=== PATIENT | female | born 1990 | race Caucasian/White ===

== ENCOUNTER 2020-11-07 18:54 | Emergency (ER) | payer OTHER, SELFPAY ==
[2020-11-07] VITALS (17 sets, daily range): BP systolic 110–141; BP diastolic 84–107; PULSE 90–137; RESP 11–25; TEMP 37.6; O2SAT 95–100
--- NOTE | ~2020-11-07 | XR_ITS ---
EXAMINATION: XR chest 1V portable DATE: 11/07/2020 19:59 INDICATION: Fever, chills and body aches TECHNIQUE: frontal view of the chest was obtained. COMPARISON: None FINDINGS: The lungs are clear with no focal airspace opacities, pulmonary edema, pleural effusion or pneumothor ax. The cardiomediastinal silhouette is normal. Mild S-shaped curvature of the thoracic spine. IMPRESSION: 1. No acute cardiopulmonary disease. Reviewed, dictated and finalized at location A. 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
--- NOTE | 2020-11-07 19:16 | ED.FEVER ---
HPI - Fever General Chief Complaint: Fever Stated Complaint: fever Time Seen by Provider: 11/07/20 19:02 Source: patient Mode of arrival: ambulatory Limitations: no limitations History of Present Illness HPI Narrative: This is a 30 year old female that presents to the ER for fever. Associated with body aches, chills, congestion. Reports her temperature was 103 at home which prompted her to be seen. She did take Tylenol. Symptoms have been ongoing for 3 days. Reports her boyfriend has had similar symptoms. Denies chest pain, shortness of breath, abdominal pain, vomiting, or dysuria. Related Data Home Medications Medication Instructions Recorded Confirmed No Home Medications 11/07/20 11/07/20 Allergies Allergy/AdvReac Type Severity Reaction Status Date / Time clindamycin Allergy Rash Verified 11/07/20 19:03 Review of Systems Review of Systems: Narrative: CONSTITUTIONAL: Reports fever, chills ENT: Reports rhinorrhea, congestion CARDIOVASCULAR: Denies chest pain RESPIRATORY: Denies cough or dyspnea. GASTROINTESTINAL: Denies abdominal pain, nausea, vomiting GENITOURINARY: Denies dysuria All systems reviewed & are unremarkable except as noted in HPI and below PMFSH Past Medical History Medical History (Updated 11/07/20 @ 20:25 by Lorraine Palafox PA-C) No active medical problems Social History Social History (Updated 11/07/20 @ 19:24 by Lorraine Palafox PA-C) Substance use: never Gender identity (if verbalized by the patient): Female Exam Narrative: Exam Narrative: GENERAL: Well-appearing, well-nourished, and in no acute distress. HEAD: Normocephalic, atraumatic. EYES: EOMI. ENT: Nares clear, no rhinorrhea or epistaxis. Mucous membranes moist. Oropharynx without tonsillar hypertrophy exudate or other lesions. Bilateral TMs pearly gunn non-bulging NECK: Supple. No adenopathy or masses. CHEST: Clear to auscultation. No respiratory distress. No wheezes rales or rhonchi HEART: Regular rate and rhythm. No murmur heard. Normal peripheral pulses. EXTREMITIES: Normal range of motion. No edema. SKIN: Warm, dry, no rash. NEURO: No focal deficits. Alert and oriented x3. PSYCH: Normal mood and affect Course Vital Signs Vital signs: Vital Signs Temperature 99.6 F 11/07/20 19:01 Pulse Rate 130 H 11/07/20 19:01 Respiratory Rate 18 11/07/20 19:01 Blood Pressure 141/107 H 11/07/20 19:01 Pulse Oximetry 98 11/07/20 19:01 Temperature 99.6 F 11/07/20 19:01 Pulse Rate 111 H 11/07/20 19:16 Respiratory Rate 12 11/07/20 19:16 Blood Pressure 129/86 11/07/20 19:16 Pulse Oximetry 97 11/07/20 19:16 MDM - Fever MDM Narrative Medical decision making narrative: Patient presents the emergency department for cold symptoms x3 days. Tachycardic upon arrival, this improved with IV fluid administration. She is afebrile and nontoxic-appearing. Oxygen saturation is remained normal on room air. CBC with lymphocytopenia, likely due to viral infection. Metabolic panel with mild transaminitis, also likely due to viral infection. Lactic acid is normal. Influenza screen is negative. SARS-CoV-2 was sent. Chest x-ray is without acute findings. UA without evidence of infection. Patient was updated on case findings. Instructed on care of viral infection. She is to follow-up with primary care doctor. She was given warnings to return to the ER Lab Data Attestation: I reviewed the patient's lab results. Result diagrams: 11/07/20 19:22 11/07/20 19:22 Labs: Lab Results 11/07/20 11/07/20 11/07/20 Range/Units 19:22 19:22 19:22 WBC 2.9 L (4.5-10.0) K/mm3 RBC 5.19 (4.2-5.4) M/mm3 Hgb 15.0 (12.0-15.0) g/dL Hct 44.4 (37.0-47.0) % MCV 85.5 (80-100) fl MCH 28.9 (26-34) pg MCHC 33.8 (32-36) g/dl RDW 12.2 (11.5-14.5) % Plt Count 209 (150-375) k/mm3 MPV 9.0 (7.4-10.4) fl Immature Gran % (Auto) 0.3 (0-0.5) % Neut %
[2020-11-07 19:27] LABS: Basophils Percent Auto 0.3 % (0.2-1.2); Hematocrit 44.4 % (37.0-47.0); Immature Granulocyte Absolute 0.01 K/mm3 (0.00-0.031); Immature Granulocyte Percent A 0.3 % (0-0.5); Lymphocytes Absolute Auto 0.71 K/mm3 (0.9-3.2); Lymphocytes Percent Auto 24.1 % (18.3-44.2); Mean Corpuscular HGB Conc 33.8 g/dl (32-36); Mean Corpuscular Hemoglobin 28.9 pg (26-34); Mean Corpuscular Volume 85.5 fl (80-100); Monocytes Absolute Auto 0.3 K/mm3 (0.1-0.6); Monocytes Percent Auto 10.5 % (2.6-8.5); Neutrophils Absolute Auto 1.9 K/mm3 (1.3-6.7); Neutrophils Percent Auto 63.8 % (45.5-73.1); Platelet Count Result 209 k/mm3 (150-375); Red Blood Count 5.19 M/mm3 (4.2-5.4); Red Cell Distribution Width 12.2 % (11.5-14.5); White Blood Count 2.9 K/mm3 (4.5-10.0)
[2020-11-07] MEDS: SODIUM CHLORIDE 0.9% IV 1,000 ML 999 ML IV CONT (19:36)
[2020-11-07] MEDS: KETOROLAC 30 MG/ML VIAL (*BKC) (19:37)
[2020-11-07 19:39] LABS: Lactic Acid Reflex 1.2 mmol/L (0.7-2.1)
[2020-11-07 19:42] LABS: Alanine Aminotransferase 50 U/L (4-35); Albumin Level 3.9 g/dL (3.5-5.1); Alkaline Phosphatase 89 U/L (38-126); Anion Gap 4 mmol/L (8-16); Aspartate Amino Transferase 51 U/L (14-36); Bilirubin,Total 0.4 mg/dL (0.2-1.3); Blood Urea Nitrogen 4 mg/dL (7-17); CRP 5.9 mg/dL (<1.0); Calcium 8.9 mg/dL (8.4-10.2); Carbon Dioxide 27 mmol/L (22-30); Chloride 103 mmol/L (98-107); Estimated CRCL calculation 166 ml/min; Estimated Glomerular Filt Rate > 60; Glucose 126 mg/dL (65-105); Lactate Dehydrogenase 594 U/L (313-618); Potassium 3.9 mmol/L (3.4-5.0); Sodium 134 mmol/L (137-145)
[2020-11-07 20:44] LABS: Add Urine Microscopic? YES; Appearance Urine Clear (Clear); Bacteria Urine Trace /hpf; Bilirubin Urine Negative (Negative); Blood Urine 2+ (Negative); Color Urine Yellow (Yellow); Glucose Urine UA Negative (Negative); Ketones Urine Negative (Negative); Leukocyte Esterase Ur Negative LEU/UL (Negative); Mucus Urine Moderate /lpf; Nitrate Urine Negative (Negative); Protein Urine 1+ mg/dL (Negative); Specific Grav Ur 1.021 (1.001-1.035); Squamous Epithelial Cell Urine Few /hpf (Few); Urobilinogen Urine Negative mg/dL (<2.0); WBC Urine 0-3 /hpf
[2020-11-08 16:31] LABS: SARS-CoV-2 RNA PCR Negative
== END 2020-11-07 21:13 | disposition home or self-care (01) ==
PROVIDERS: Physician Assistant; Emergency Provider Emergency Medicine; PCP Obstetrics & Gynecology
DX: R50.9 Fever, unspecified (principal); Z20.822 Contact with and (suspected) exposure to COVID-19
CPT/HCPCS: 36415; 71045; 80053; 81001; 81025; 82728; 83605; 83615; 85025; 86140; 87804; 96361; 96374; 99284; C9803; J1885; J7030; U0003; U0005

== ENCOUNTER 2022-07-24 13:52 | Outpatient (CLI) | payer OTHER, SELFPAY ==
[2022-07-24 14:42] LABS: Beta HCG Quantitative < 2.39 mIU/ML
== END 2022-07-24 13:53 | disposition home or self-care (01) ==
LOC: ANHLAB 13:58
PROVIDERS: Visit Provider Obstetrics & Gynecology
DX: O20.0 Threatened abortion (principal); Z3A.00 Weeks of gestation of pregnancy not specified
CPT/HCPCS: 36415; 84702; 86850; 86900; 86901

== ENCOUNTER 2022-12-31 03:09 | Emergency (ER) | payer OTHER, SELFPAY ==
[2022-12-31] VITALS (18 sets, daily range): BP systolic 125–155; BP diastolic 84–94; PULSE 67–88; RESP 16–21; TEMP 36.6; O2SAT 95–100
--- NOTE | ~2022-12-31 | CT_ITS ---
EXAMINATION: CT abdomen pelvis wo con DATE: 12/31/2022 03:56 INDICATION: Nausea and right-sided flank pain TECHNIQUE: Computed tomography (CT) of the abdomen and pelvis was performed without intravenous contr ast. Automated exposure control and iterative reconstruction technique were employed. The dose-length product was 1713.99 mGy-cm. COMPARISON: None FINDINGS: Lung bases are clear. Heart size is normal. No pericardial or pleural effusion. Cholecystectomy clips the gallbladder fossa. Liver, spleen, pancreas and bilateral adrenal glands are normal. 4 mm stone a t the proximal right ureter with mild right hydronephrosis. There are a few additional smaller bilate ral renal stones with 3 in the right kidney and 4 in the left kidney. Small region of cortical scarri ng at the lower pole of the right kidney. Bowels are unremarkable with no wall thickening or obstruct ion. Decompressed bladder is normal. Anteverted uterus and bilateral adnexa are normal. No free intra peritoneal gas or fluid. No pathologically enlarged abdominal or pelvic lymphadenopathy. Bones are un remarkable. IMPRESSION: 1. Bilateral nephrolithiasis with at least partially obstructing 4 mm stone in the proximal right ure ter with mild right hydronephrosis. Reviewed, dictated and finalized at location A. IMPRESSION: 1. Bilateral nephrolithiasis with at least partially obstructing 4 mm stone in the proximal right ureter with mild right hydronephrosis.
[2022-12-31] MEDS: ONDANSETRON INJ 4 MG/2 ML VIAL IV PUSH (03:28)
[2022-12-31] MEDS: MORPHINE SULFATE (*CRX) 4 MG/ML INJ IV PUSH ×2 (03:28→07:23)
[2022-12-31] MEDS: SODIUM CHLORIDE 0.9% IV 1,000 ML 999 ML IV CONT (03:28)
[2022-12-31 03:30] LABS: Basophils Absolute Auto 0.1 K/mm3 (0.0-0.1); Basophils Percent Auto 0.7 % (0.2-1.2); Eosinophils Absolute Auto 0.6 K/mm3 (0-0.3); Eosinophils Percent Auto 6.7 % (0-4.4); Hematocrit 42.8 % (37.0-47.0); Hemoglobin 14.7 g/dL (12.0-15.0); Immature Granulocyte Absolute 0.01 K/mm3 (0.00-0.031); Immature Granulocyte Percent A 0.1 % (0-0.5); Lymphocytes Percent Auto 36.6 % (18.3-44.2); Mean Corpuscular HGB Conc 34.3 g/dl (32-36); Mean Corpuscular Volume 87.3 fl (80-100); Mean Platelet Volume 9.1 fl (7.4-10.4); Monocytes Absolute Auto 0.8 K/mm3 (0.1-0.6); Monocytes Percent Auto 9.1 % (2.6-8.5); Neutrophils Percent Auto 46.8 % (45.5-73.1); Platelet Count Result 301 k/mm3 (150-375); Red Cell Distribution Width 12.6 % (11.5-14.5); White Blood Count 8.5 K/mm3 (4.5-10.0)
--- NOTE | 2022-12-31 03:39 | ED.GENADULT ---
HPI - General Adult General Chief complaint: Back Pain/Injury <Fer Augustine MD - Last Filed: 12/31/22 06:28> Stated complaint: Flank pain <Fer Augustine MD - Last Filed: 12/31/22 06:28> Time Seen by Provider: 12/31/22 03:16 <Fer Augustine MD - Last Filed: 12/31/22 06:28> History of Present Illness HPI narrative: Patient 32-year-old female who presents the emergency department with chief complaint of right flank pain. Patient reports that she started having pain this evening in the right flank area got nauseated reports the pain is sharp radiates from the right flank to the right groin. Patient reports that she feels she had a similar episode in the past where she passed a kidney stone. Patient states this episode has been pretty severe and is not improved by anything. <Fer Augustine MD - Last Filed: 12/31/22 06:28> Related Data Allergies/adverse reactions: Allergies Allergy/AdvReac Type Severity Reaction Status Date / Time clindamycin Allergy Rash Verified 12/31/22 07:11 <Fer Augustine MD - Last Filed: 12/31/22 06:28> Review of Systems Review of Systems: A 10 system review of systems was completed on the patient and is negative except for what is stated in the HPI. Nursing and ancillary documentation was reviewed. <Fer Augustine MD - Last Filed: 12/31/22 06:28> PMFSH Past Medical History Medical History: Medical History No active medical problems <Fer Augustine MD - Last Filed: 12/31/22 06:28> Social History Social History: Social History Substance use: never Gender identity (if verbalized by the patient): Female <Fer Augustine MD - Last Filed: 12/31/22 06:28> Exam Narrative: GENERAL: Well-appearing, well-nourished, and in moderate pain distress. HEAD: Normocephalic, atraumatic. EYES: PERRLA and EOMI. ENT: Nares clear, no rhinorrhea or epistaxis. Mucous membranes moist. NECK: Supple. CHEST: Clear to auscultation. No respiratory distress. HEART: Regular rate and rhythm. No murmur heard. Normal peripheral pulses. ABDOMEN: Soft, nontender, nondistended, normal active bowel sounds. EXTREMITIES: Normal range of motion. No edema. SKIN: Warm, dry, no rash. NEURO: No focal deficits. Alert and oriented x3. PSYCH: Normal mood and affect. <Fer Augustine MD - Last Filed: 12/31/22 06:28> Course Reevaluation(s) Reevaluation #1: Patient care was signed out to me by Dr. Augustine with CT pending. Patient is a 32-year-old female presenting to the ED after developing right flank pain approximate 1 hour prior to arrival. Patient does have a remote history of a kidney stone that she was able to pass on her own. CT was ordered to rule out kidney stone. Patient was afebrile with no leukocytosis. Patient's CMP including her creatinine was similar to her baseline. Patient did have hematuria with a few white blood cells. No significant evidence of urinary infection. CT scan showed bilateral nephrolithiasis with at least partial obstructing 4 mm stone in the proximal right ureter with mild right hydronephrosis. On reevaluation patient states that she does feel that her pain is controlled. Patient was updated on the results of her work-up including CT scan. Patient was educated on the treatment plan for home including pain and nausea medications. Patient was also instructed to strain her urine. Patient will be provided follow-up with urology. Patient was also educated on reasons to return to the emergency room. All questions concerns were addressed and patient was comfortable with the plan for discharge and close follow-up. <Campos Somers MD - Last Filed: 12/31/22 11:26> Vital Signs Vital signs: Vital Signs Temperature 98 F 12/31/22 03:
[2022-12-31 03:41] LABS: Alanine Aminotransferase 33 U/L (6-35); Albumin Level 4.4 g/dL (3.5-5.1); Alkaline Phosphatase 93 U/L (38-126); Anion Gap 7 mmol/L (8-16); Aspartate Amino Transferase 29 U/L (14-36); Bilirubin,Total 0.5 mg/dL (0.2-1.3); Blood Urea Nitrogen 12 mg/dL (7-17); Calcium 9.8 mg/dL (8.4-10.2); Carbon Dioxide 25 mmol/L (22-30); Chloride 103 mmol/L (98-107); Estimated CRCL calculation 144 ml/min; Estimated Glomerular Filt Rate > 60; Glucose 112 mg/dL (65-110); Lipase 180 U/L (23-300); Potassium 3.8 mmol/L (3.4-5.0); Sodium 135 mmol/L (137-145)
[2022-12-31 05:00] LABS: Appearance Urine Clear (Clear); Bacteria Urine None Seen /hpf; Bilirubin Urine Negative (Negative); Blood Urine 3+ (Negative); Color Urine Yellow (Yellow); Glucose Urine UA Negative (Negative); Ketones Urine Negative (Negative); Leukocyte Esterase Ur Trace LEU/UL (Negative); Nitrate Urine Negative (Negative); Protein Urine Trace mg/dL (Negative); RBC Urine >100 /hpf (0-2); Specific Grav Ur 1.018 (1.001-1.035); Squamous Epithelial Cell Urine Occasional /hpf (Few); Urobilinogen Urine 0.2 mg/dL (<2.0); pH Urine 5.5 (5.0-9.0)
[2022-12-31 05:11] LABS: Add Urine Microscopic? YES
[2022-12-31] MEDS: TAMSULOSIN HCL 0.4 MG CAPSULE PO (09:03)
== END 2022-12-31 09:15 | disposition home or self-care (01) ==
PROVIDERS: Emergency Provider Emergency Medicine
DX: N20.1 Calculus of ureter (principal)
CPT/HCPCS: 36415; 74176; 80053; 81001; 81025; 83690; 85025; 87086; 87088; 96361; 96374; 96375; 96376; 99284; A9270; J2270; J2405; J7030

== ENCOUNTER 2024-03-12 01:28 | Day surgery (SDC) | payer OTHER, SELFPAY ==
--- NOTE | 2024-03-03 13:57 | PC.NURSE ---
Report to the Outpatient Waiting Room, entrance under the green pavilion located off [facility], at time 0830 on date 03/12/24. Planned Procedure Time: 1030. Time changes happen often and if your time is changed the preop area will call you the afternoon before. - You and your visitor will be asked to self-screen and do not enter if you have any COVID symptoms. - A mask is optional within the hospital at this time. Patients may have clear liquids (water, carbonated beverages, clear teas, apple juice) until 3 hours prior to surgery with a maximum of 20 ounces. 0730 - No food from midnight until time of surgery - Infants may have breast milk until 4 hours before surgery, formula 6 hours prior to surgery. - Children will be allowed to drink immediately following surgery. If applicable, please bring a bottle or sippy cup to assist with drinking. Juice, water, soda, and popsicles are readily available. For infants on formula, please bring formula the day of surgery. Pacifiers are allowed. Take the following medications with a SIP of water the morning of surgery: n/a DO NOT STOP ANY OF YOUR OTHER PRESCRIPTION MEDICATIONS PRIOR TO SURGERY ?EXCEPT THE FOLLOWING Medications to discontinue per physician n/a Date to take last dose Please no make-up, nail nauruan, hairspray, perfume, deodorant, or body powder the day of surgery. No jewelry (including any body piercings) or valuables the day of surgery, leave them at home. Please take a shower or bath the night before, or the morning of, surgery with an antibacterial soap. Wear comfortable, loose fitting clothing. Children are encouraged to wear pajamas. - Jewelry must be removed prior to entering the operating room. Rings and piercings that are not removed may be cut off. - The hospital will not accept responsibility for valuables. - Please leave all valuables, including medications, at home the day of surgery. If you are going home after surgery, a licensed hook up driver must drive you home. - NO public transportation without another adult if you receive anesthesia. - We recommend that an adult stay with you for 24 hours following discharge. - We also recommend that you do not drive, make important decision, drink alcoholic beverages, or take any drugs that were not prescribed by your health care provider for at least 24 hours after your discharge time. For Pediatric surgeries, we recommend two adults accompany the child home. Follow any additional instructions given to you from your surgeon. If you or anyone in your household have experienced Covid symptoms in the past week, please notify your surgeon or the nurse liaison at the phone number below for possible testing. Telephone instructions given to Patient- Thalia Cassidy and asked if any additional questions and then verbalized understanding. Patient advised to call surgeon office or pre surgery nurse liaison [phone] if any additional questions.
[2024-03-03 14:02] VITALS: BMI 33.3
[2024-03-12] VITALS (7 sets, daily range): BP systolic 104–126; BP diastolic 61–86; PULSE 57–88; RESP 14–20; TEMP 36.9; O2SAT 97–100
[2024-03-12] MEDS: KETOROLAC 15 MG/ML VIAL (*BKC) IV PUSH (10:04)
[2024-03-12] MEDS: ACETAMINOPHEN 500 MG TABLET 1000 MG PO (10:05)
[2024-03-12] MEDS: LACTATED RINGERS 1,000 ML 30 ML IV CONT ×2 (10:05→13:33)
--- NOTE | 2024-03-12 10:38 | P.PNAN_ITS ---
Anes - Initial Pre Proc Eval Procedure: Operation Date: 03/12/24 11:15 Proposed Procedures p Hysteroscopy With Eli Endometrial Ablation, Laparoscopic Bilateral Salpingectomy - Porter Leiva MD Date/Time: 03/12/24 10:38 Surgeon: Porter Leiva MD Pre Op Diagnosis: Menorrhagia Patient Data Age: 34 Gender: F Height: 1.83 m Weight: 111.3 kg Last Vital Signs Temp 98.4 F 03/12/24 10:10 Pulse 77 03/12/24 10:10 BP 116/72 03/12/24 10:10 Pulse Ox 99 03/12/24 10:10 O2 Del Method Room Air 03/12/24 10:10 Allergies Allergy/AdvReac Type Severity Reaction Status Date / Time clindamycin Allergy Rash Verified 12/31/22 07:11 Home Medications Medication Instructions Recorded Confirmed Type No Home Medications 03/04/24 03/04/24 History Patient hx anesthesia problems: post op nausea/vomiting Family hx anesthesia problems: none Results Review: All pre-operative results and documents have been reviewed as part of the pre- operative evaluation. [facility] Past Medical History Medical History No active medical problems Social History Social History Years smoked: 2 Smoking status: Former smoker Tobacco type: cigarettes and e-cigarettes/vaping Alcohol use details: Socially Substance use: never Substance use type: marijuana Other substance usage details: nightly for sleep Gender identity (if verbalized by the patient): Female Spiritual care concerns: No Anes - Eval Final PreProcedure Day of Procedure 03/12/24 10:38 Patient weight: obese Heart: regular rate and rhythm Lungs: clear to auscultation Airway: Mallampati scale class 1 Neurological: alert and oriented Last oral intake: >/= 8 hours ASA classification: II Emergent: no Anesthetic plan: proceed Anesthesia type and monitoring: general ETT and standard monitoring Results Review: All pre-operative results and documents have been reviewed as part of the pre- operative evaluation. Hx of exercise induced asthma, stable for years. Pt vapes most days. Informed Consent: The patient's anesthetic plan and its attendant risks and benefits were discussed with the patient/family/POA. Questions were solicited and answers provided to the satisfaction of the patient/family/POA.
[2024-03-12] MEDS: SCOPOLAMINE 1 MG PATCH 1 PATCH TRANSDERM (10:50)
--- NOTE | 2024-03-12 11:57 | WPDHPUPDATE1 ---
History and Physical Update Update Date/Time: 03/12/24 11:57 History and Physical has been reviewed, including an updated exam of the patient. There are NO changes in the patient's condition. Risks, benefits, and alternatives have been discussed and questions answered. Patient agrees to proceed with procedure.
[2024-03-12] MEDS: fentaNYL CITRATE INJ (*CRX) 100 MCG/2 ML VIAL 25 MCG IV PUSH ×4 (13:50→14:09)
--- NOTE | 2024-03-12 14:52 | P.OP_ITS ---
Procedure Note - Detailed Date of Procedure 03/12/24 Pre-op Diagnosis Menorrhagia Post-op Diagnosis Same Procedure Performed Laparoscopic bilateral salpingectomy with endometrial ablation and hysteroscopy. Surgeon Porter Leiva MD Anesthesia General Indications Menorrhagia, female sterilization Findings Normal vulva, vagina, cervix and endometrium. Normal uterus, tubes, ovaries Description of Procedure Patient was taken the operating room. She has prepped draped in the dorsal lithotomy position after induction of general anesthesia. A 5 mm abdominal incision was made in left upper quadrant of the abdomen with scalpel. A 5 mm trocars inserted the intra-abdominal cavity under direct visualization of the scope. Pneumoperitoneum was achieved. A 5 mm periumbilical incision was made using a scalpel on the abdominal scan. A 5 mm trocar was inserted the intra- abdominal cavity under visualization of the scope. A 5 mm incision made left lower quadrant of the abdomen. A 5 mm trocar was inserted the intra-abdominal cavity and direct visualization of the scope. The bilateral fallopian tubes were removed. The paratubal tissue in the area of the uterus was grasped with the LigaSure cautery and transected after being cauterized. The paratubal tissue from the ovary to the uterine cornu was cauterized and transected with LigaSure cautery. This was all done in a bilateral fashion. The tube was transected at the area of the uterine cornua and the tubes was removed through the 5 mm trocar site. The pneumoperitoneum was reduced. The trocars were removed. The skin was closed with subcuticular 4 Monocryl and covered with Dermabond. Our attention was then turned to the endometrial ablation portion of the procedure. A speculum was placed in the vagina. The cervix was grasped with a tenaculum. The cervix was dilated to approximately 8 mm with Maza dilators. The hysteroscope was inserted. And the below findings were noted. All of the intrauterine surfaces were curettaged with a medium-size curette and the specimens were collected. Measurements of the cervix were taken using the uterine sound and the hysteroscope. The intrauterine cavity measurements were entered into the handpiece. The device was inserted into the intrauterine cavity and the array was expanded. The balloon cuff was inflated. When an adequate seal was formed the safety and energy cycles were initiated and completed. The array was collapsed, the balloon was deflated. The insert was withdrawn. The hysteroscope was reinserted and a well desiccated intrauterine cavity was observed. The patient was taken recovery room stable condition. Sponge lap and needle counts were correct x2. She tolerated the procedure well. Pathology Yes Complications No immediate complications Condition Stable Disposition PACU
== END 2024-03-12 15:09 | disposition home or self-care (01) ==
PROVIDERS: Visit Provider Obstetrics & Gynecology
PROC: 0UDB8ZZ Extraction of Endometrium, Via Natural or Artificial Opening Endoscopic (ICD-10-PCS; CPT 58558; principal; 2024-03-12 11:15)
DX: N92.0 Excessive and frequent menstruation with regular cycle (principal); Z30.2 Encounter for sterilization; Z87.891 Personal history of nicotine dependence; F12.90 Cannabis use, unspecified, uncomplicated; E66.9 Obesity, unspecified; Z68.33 Body mass index [BMI] 33.0-33.9, adult
CPT/HCPCS: 58661; 58563; 88302; 88305; A9270; J1100; J1170; J1200; J1885; J2250; J2405; J2704; J3010; J7030; J7120

== ENCOUNTER 2024-08-09 09:43 | Emergency (ER) | payer OTHER, SELFPAY ==
--- NOTE | ~2024-08-09 | CT_ITS ---
EXAMINATION: CT BRAIN W/O DATE: 08/09/2024 12:20 INDICATION: Vertigo. Intermittent left eye vision loss. TECHNIQUE: Computed tomography (CT) of the head was performed without intravenous contrast. The dose- length product was 529.67 mGy-cm. Automated exposure control and iterative reconstruction technique w ere employed. COMPARISON: No prior studies for comparison. FINDINGS: Normal brain parenchymal volume for age. Normal gunn-white differentiation. No acute intrac ranial hemorrhage, infarction, mass or mass effect. No ventriculomegaly or midline shift. Midline sagittal images demonstrate a normal corpus callosum, c raniovertebral junction and sella turcica. Basilar cisterns are patent. Paranasal sinuses and mastoids are pneumatized. No depressed skull fractures. IMPRESSION: 1. No acute intracranial abnormality. Reviewed, dictated and finalized at location B.
--- NOTE | ~2024-08-09 | XR_ITS ---
EXAMINATION: XR chest 2V 08/09/2024 12:25 INDICATION: Vertigo. Left-sided vision changes. PROCEDURE: 2 view chest COMPARISON: 11/07/2020 FINDINGS: The lungs are clear. The cardiomediastinal silhouette is within normal limits. There are no pleural effusions. There is no pneumothorax suspected. There are cholecystectomy clips. IMPRESSION: 1: NO ACUTE CARDIOPULMONARY DISEASE. Reviewed, dictated and finalized at location B.
[2024-08-09 09:43] VITALS: BP 127/86; PULSE 76; RESP 15; TEMP 36.7; O2SAT 100
--- NOTE | 2024-08-09 09:57 | ECG_ITS ---
Test Date: 2024-08-09 10:01:41 Measurements Intervals [place] Rate: 72 P: 31 MI: 148 QRS: -9 QRSD: 92 T: 17 QT: 370 QTc: 405 Interpretive Statements SINUS RHYTHM LOW-VOLTAGE QRS BORDERLINE ECG No previous ECG available for comparison Electronically Signed On 08-10-2024 08:47:39 CDT by Brian Humphrey M.D.
--- NOTE | 2024-08-09 11:52 | ED.DIZZY ---
HPI - Dizziness General Chief Complaint: Dizziness Stated Complaint: dizziness Time Seen by Provider: 08/09/24 10:02 History of Present Illness HPI Narrative: 34-year-old female presenting with vertigo. States that for the last couple of days she has had intermittent episodes of vertigo. States that they seem random but they are worsened with positional changes and bending over and standing up. She has also had several episodes where her vision in her left eye went black and then slowly returns. States that she has an appointment with her PCP for this. States that she has been under lot of stress they are currently adopting a child so she has been attributing her symptoms to stress. Denies headaches, numbness or weakness, speech changes, infectious symptoms. No further complaints. Related Data Allergies Allergy/AdvReac Type Severity Reaction Status Date / Time clindamycin Allergy Rash Verified 08/09/24 09:56 Review of Systems Review of Systems: All systems reviewed & are unremarkable except as noted in HPI and below PMFSH Past Medical History Medical History No active medical problems Social History Social History Years smoked: 2 Smoking status: Former smoker Tobacco type: cigarettes and e-cigarettes/vaping Alcohol use details: Socially Substance use: never Substance use type: marijuana Other substance usage details: nightly for sleep Gender identity (if verbalized by the patient): Female Spiritual care concerns: No Exam Narrative: GENERAL: Well-appearing, In no acute distress, pleasant cooperative HEAD: Normocephalic, atraumatic. EYES: PERRLA and EOMI. several beats of horizontal nystagmus ENT: Mucous membranes moist. NECK: Supple. CHEST: Clear to auscultation. No respiratory distress. HEART: Regular rate and rhythm ABDOMEN: Soft, nontender, nondistended EXTREMITIES: Normal range of motion. No edema. SKIN: Warm, dry, no rash. NEURO: No focal deficits. Alert and oriented x3. no pronator drift, finger to nose intact PSYCH: Normal mood and affect. Course Vital Signs Vital signs: Vital Signs Temperature 98.1 F 08/09/24 09:43 Pulse Rate 76 08/09/24 09:43 Respiratory Rate 15 08/09/24 09:43 Blood Pressure 127/86 08/09/24 09:43 Pulse Oximetry 100 08/09/24 09:43 Oxygen Delivery Room Air 08/09/24 09:43 Temperature 98.1 F 08/09/24 09:43 Pulse Rate 64 08/09/24 14:25 Respiratory Rate 18 08/09/24 14:25 Blood Pressure 108/80 08/09/24 14:25 Pulse Oximetry 99 08/09/24 14:25 Oxygen Delivery Room Air 08/09/24 09:43 MDM - Dizziness MDM Narrative Medical decision making narrative: 34-year-old female presenting with vertigo. Vitals within normal limits. Exam remarkable for the above. EKG per my interpretation shows normal sinus rhythm, no ST elevations or depressions. Blood work is unremarkable. UA is contaminated, not concerning for infection. CT brain without acute abnormalities. Chest x-ray without acute abnormalities. Patient reports improvement in her symptoms following fluids and meclizine. States that she had a mild episode of some vertigo when she got up to use the restroom but it was mild and quickly resolved. Feel she is safe for outpatient management. Will send in for p.r.n. meclizine. Recommend close PCP follow-up. Strict return precautions given. She is agreeable this plan. Discharged in stable condition. Differential Diagnosis Differential diagnosis: Likely other ( Vertigo, lightheadedness, generalized weakness) Medical Records Attestation: I reviewed the patient's medical records. Lab Data Attestation: I reviewed the patient's lab results. 08/09/24 12:33 08/09/24 12:33 Labs: Lab Results 08/09/24 Range/Units 12:33 WBC 8.0 (4.5-10.0) K/mm3 RBC 4.89 (4.2-5.4)
[2024-08-09] MEDS: MECLIZINE HCL 25 MG TABLET PO (12:31)
[2024-08-09] MEDS: SODIUM CHLORIDE 0.9% IV 1,000 ML 999 ML IV CONT (12:31)
[2024-08-09 12:35] VITALS: BP 109/77; PULSE 69; RESP 17; O2SAT 100
[2024-08-09 12:43] LABS: Basophils Absolute Auto 0.1 K/mm3 (0.0-0.1); Basophils Percent Auto 0.6 % (0.2-1.2); Eosinophils Absolute Auto 0.3 K/mm3 (0-0.3); Eosinophils Percent Auto 3.9 % (0-4.4); Hematocrit 43.5 % (37.0-47.0); Hemoglobin 14.1 g/dL (12.0-15.0); Immature Granulocyte Absolute 0.02 K/mm3 (0.00-0.031); Immature Granulocyte Percent A 0.3 % (0-0.5); Lymphocytes Absolute Auto 2.33 K/mm3 (0.9-3.2); Lymphocytes Percent Auto 29.2 % (18.3-44.2); Mean Corpuscular HGB Conc 32.4 g/dl (32-36); Mean Corpuscular Hemoglobin 28.8 pg (26-34); Mean Platelet Volume 9.2 fl (7.4-10.4); Monocytes Absolute Auto 0.8 K/mm3 (0.1-0.6); Monocytes Percent Auto 9.5 % (2.6-8.5); Neutrophils Absolute Auto 4.5 K/mm3 (1.3-6.7); Neutrophils Percent Auto 56.5 % (45.5-73.1); Platelet Count Result 251 k/mm3 (150-375); Red Blood Count 4.89 M/mm3 (4.2-5.4)
[2024-08-09 12:56] LABS: Alanine Aminotransferase 21 U/L (6-35); Alkaline Phosphatase 68 U/L (38-126); Anion Gap 4 mmol/L (4-12); Aspartate Amino Transferase 23 U/L (14-36); Bilirubin,Total 0.7 mg/dL (0.2-1.3); Blood Urea Nitrogen 9 mg/dL (7-17); Calcium 8.8 mg/dL (8.4-10.2); Carbon Dioxide 30 mmol/L (22-30); Chloride 103 mmol/L (98-107); Estimated CRCL calculation 152 ml/min; Estimated Glomerular Filt Rate > 60; Glucose 75 mg/dL (65-110); Potassium 4.1 mmol/L (3.4-5.0); Sodium 137 mmol/L (137-145)
[2024-08-09 12:58] LABS: Add Urine Microscopic? YES; Appearance Urine Cloudy (Clear); Bacteria Urine 1+ /hpf; Bilirubin Urine Negative (Negative); Blood Urine Negative (Negative); Color Urine Yellow (Yellow); Glucose Urine UA Negative (Negative); Ketones Urine Negative (Negative); Leukocyte Esterase Ur Negative LEU/UL (Negative); Need Manual Microscopic Reviewed; Nitrate Urine Negative (Negative); Non Pathogenic Casts 0-2; Protein Urine Negative (Negative); RBC Urine 0-2 /hpf (0-2); Specific Grav Ur 1.017 (1.001-1.035); Squamous Epithelial Cell Urine Few /hpf (Few); Urobilinogen Urine 0.2 mg/dL (<2.0); WBC Urine 0-5 /hpf (0-3); pH Urine 6.5 (5.0-9.0)
[2024-08-09 14:25] VITALS: BP 108/80; PULSE 64; RESP 18; O2SAT 99
[2024-08-09 15:26] VITALS: BP 109/69; PULSE 77; RESP 18; O2SAT 100
== END 2024-08-09 15:29 | disposition home or self-care (01) ==
PROVIDERS: Emergency Provider Emergency Medicine
DX: R42 Dizziness and giddiness (principal); H53.8 Other visual disturbances; Z87.891 Personal history of nicotine dependence; R94.31 Abnormal electrocardiogram [ECG] [EKG]
CPT/HCPCS: 36415; 70450; 71046; 80053; 81001; 85025; 93005; 96360; 99284; A9270; J7030

== ENCOUNTER 2024-12-15 05:26 | Emergency (ER) | payer OTHER, SELFPAY ==
--- NOTE | ~2024-12-15 | CT_ITS ---
Non-contrast CT scan of the Abdomen and Pelvis Clinical indication: Kidney stone Technique: 2.5 mm axial scans were obtained through the abdomen and pelvis without intravenous or or al contrast. Dose reduction technique was used on this scan by utilizing automated exposure control a nd iterative reconstruction technique. The dose-length product (DLP) was 656.51 mGy-cm. COMPARISON: 12/31/2022 Findings: Images through the lung bases reveal no abnormalities. 2 mm nonobstructing right renal stone present. 3 mm nonobstructing left renal stone present. No urete ral stone or hydronephrosis on either side. The liver, spleen, pancreas, and adrenals appear normal. Cholecystectomy clips are present. There is no aortic aneurysm. There is no evidence of bowel obstruction. Images through the pelvis were performed. There is no evidence of ascites or lymphadenopathy. Urinary bladder unremarkable. No pelvic mass seen. Impression: Small bilateral nonobstructing stones, as above. No ureteral stone or hydronephrosis on either side. Reviewed, dictated and finalized at [facility]. R CLERK Impression: Small bilateral nonobstructing stones, as above. No ureteral stone or hydronephrosis on either side.
[2024-12-15 05:27] VITALS: BP 111/74; PULSE 72; RESP 22; O2SAT 100
--- OUTSIDE RECORDS SUMMARY | 2024-12-15 05:28 | XMS_ITS | Patient Health Summary ---
Author Organization [facility] Address [address] [place] [address] Care Team Providers Care Carcass Washer Name Role Phone Unavailable Primary Care Provider Unavailabl e Note from [facility],non-owned Affiliates and Associated Physician Practices is amultiple site organization consisting of ambulatory clinics and hospital sitesin [place], [place], [place] and [place]. This disclosure is being madepursuant to the Care Everywhere program and may not contain all information available regarding this patient. Last updated 18.[facility] Allergies * Clindamycin(Itching) Medications * Be aware that medications may not be up to date on this document. Alwaysverify current medications with the patient. * oxyCODONE-acetaminophen (Percocet) 5-325 MG tablet(Started 02/05/2023) Take 1 (one) tablet by mouth every 6 hours as needed for Pain * tamsulosin (Flomax) 0.4 MG capsule(Started 02/05/2023) Take 1 (one) capsule by mouth once daily after breakfast At the same time every day after a meal. * ondansetron (Zofran) 4 MG tablet(Started 02/05/2023) Take 1 (one) tablet by mouth every 6 hours as needed for Nausea/Vomiting Social History Tobacco Use Types Packs/Day Years Used Date Smoking Tobacco: Never Assessed Sex and Gender Information Value Date Recorded Sex Assigned at Not on file Gender Identity Not on file Sexual Orientation Not on file Last Filed Vital Signs Vital Sign Reading Time Taken Comments Blood Pressure 115/71 02/05/2023 11:46 AM CDT Pulse 68 02/05/2023 11:46 AM CDT Temperature 36.4 C (97.6 F) 02/05/2023 11:46 AM CDT Respiratory Rate 18 02/05/2023 11:46 AM CDT Oxygen Saturation 97% 02/05/2023 11:46 AM CDT Inhaled Oxygen Concentration - - Weight 122.5 kg (270 lb) 02/05/2023 8:31 AM CDT Height 182.9 cm (6') 02/05/2023 8:31 AM CDT Body Mass Index 36.62 02/05/2023 8:31 AM CDT Procedures * URINE MICROSCOPIC ONLY REFLEX TO CULTURE(Performed 02/05/2023) * URINALYSIS REFLEX MICROSCOPIC REFLEX CULTURE(Performed 02/05/2023) * HCG URINE QUALITATIVE(Performed 02/05/2023) * COMPREHENSIVE METABOLIC PANEL(Performed 02/05/2023) * CBC W AUTO DIFFERENTIAL(Performed 02/05/2023) * CT RENAL STONE(Performed 02/05/2023) Performed for Flank pain Results * (ABNORMAL) URINE MICROSCOPIC ONLY REFLEX TO CULTURE (02/05/2023 9:56 AM CDT) Reflex Status Culture not indicated 02/05/2023 10:50 AM CDT [facility] RBC UA 3-5 0 - 5 # /hpf 02/05/2023 10:50 AM CDT [facility] WBC UA 0-5 0 - 5 # /hpf 02/05/2023 10:50 AM CDT [facility] Bacteria UA Trace(A) None Seen 02/05/2023 10:50 AM CDT [facility] Squamous Epithelial Cells 0-2 0 - 5 /hpf 02/05/2023 10:50 AM CDT [facility] Mucus UA 1+ /LPF 02/05/2023 10:50 AM CDT [facility] Urine URINE SPECIMEN OBTAINED BY CLEAN CATCH PROCEDURE / Unknown Collection / Unknown 02/05/2023 9:56 AM CDT 02/05/2023 10:30 AM CDT Narrative [facility] - 02/05/2023 10:50 AM CDT Natalya Godfrey DO LAB - URINALYSIS ORDERABLES [facility] [address] [place] [address] * (ABNORMAL) URINALYSIS REFLEX MICROSCOPIC REFLEX CULTURE (02/05/2023 9:56 AM CDT) Color UA Yellow Straw, Yellow 02/05/2023 10:46 AM CDT [facility] Clarity UA Clear Clear 02/05/2023 10:46 AM CDT [facility] Glucose UA Negative Negative 02/05/2023 10:46 AM CDT [facility] Bilirubin UA Negative Negative 02/05/2023 10:46 AM CDT [facility] Ketone UA Negative Negative 02/05/2023 10:46 AM CDT [facility] Specific [place] UA 1.013 1.005 - 1.030 02/05/2023 10:46 AM CDT [facility] Blood UA 2+(A) Negative 02/05/2023 10:46 AM CDT [facility] pH UA 5.0 5.0 - 8.0 pH 02/05/2023 10:46 AM CDT [facility] Protein UA Negative Negative 02/05/2023 10:46 AM CDT [facility] Urobilinogen UA Negative Negative mg/dL 02/05/2023 10:46 AM CDT [facility] Nitrite UA Negative Negative 02/05/2023 10:46 AM CDT [facility] Leukocyte UA Negative Negative 02/05/2023 10:46 AM CDT [facility] Urine Microscopy Urine microscopy to follow 02/05/2023 10:46 AM CDT [facility] Reflex Status Culture not indicated 02/05/2023 10:46 AM CDT [facility] Urine URINE SPECIMEN OBTAINED BY CLEAN CATCH PROCEDURE / Unknown Collection / Unknown 02/05/2023 9:56 AM CDT 02/05/2023 10:30 AM CDT Narrative [facility] - 02/05/2023 10:46 AM CDT Natalya Godfrey DO LAB - URINALYSIS ORDERABLES [facility] [address] [place] [address] * HCG URINE QUALITATIVE (02/05/2023 9:56 AM CDT) Pathologist [facility] hCG Qualitative Urine Negative Negative 02/05/2023 10:44 AM CDT [facility] Urine URINE / Unknown Collection / Unknown 02/05/2023 9:56 AM CDT 02/05/2023 10:30 AM CDT Natalya Godfrey DO LAB - URINALYSIS ORDERABLES Performing Organization Address City/State/[facility] Co de Phone Number [facility] [address] [place], [place] [id number] * (ABNORMAL) CBC W AUTO DIFFERENTIAL (02/05/2023 9:56 AM CDT) WBC 6.6 4.4 - 10.7 x10E9/L 02/05/2023 10:41 AM CDT [facility] WBC Corrected 02/05/2023 10:41 AM CDT [facility] RBC 4.58 3.80 - 5.20 x10E12/L 02/05/2023 10:41 AM CDT [facility] Hemoglobin 13.2 12.0 - 15.6 gm/dL 02/05/2023 10:41 AM CDT [facility] Hematocrit 40.1 35.9 - 45.5 % 02/05/2023 10:41 AM CDT [facility] MCV 87.6 80.7 - 98.3 fl 02/05/2023 10:41 AM CDT [facility] MCH 28.8 26.7 - 34.0 pg 02/05/2023 10:41 AM CDT [facility] MCHC 32.9 30.8 - 35.9 gm/dL 02/05/2023 10:41 AM CDT [facility] Platelet Count 249 153 - 416 x10E9/L 02/05/2023 10:41 AM CDT [facility] RDW-CV 12.1 12.1 - 14.9 % 02/05/2023 10:41 AM CDT [facility] MPV 9.3(L) 9.4 - 12.9 fl 02/05/2023 10:41 AM CDT [facility] Neutrophils % 56.4 44.0 - 73.0 % 02/05/2023 10:41 AM CDT [facility] Lymphocytes % 28.1 20.0 - 43.0 % 02/05/2023 10:41 AM CDT [facility] Monocytes % 10.1 5.0 - 13.0 % 02/05/2023 10:41 AM CDT [facility] Eosinophils % 4.7 0.0 - 6.0 % 02/05/2023 10:41 AM CDT [facility] Basophils % 0.5 0.0 - 2.0 % 02/05/2023 10:41 AM CDT [facility] Immature Granulocytes 0.2 0 - 1 % 02/05/2023 10:41 AM CDT [facility] Neutrophil Absolute 3.70 2.01 - 7.14 x10E9/L 02/05/2023 10:41 AM CDT [facility] Lymphocytes Absolute 1.84 1.07 - 3.94 x10E9/L 02/05/2023 10:41 AM CDT [facility] Monocytes Absolute 0.66 0.26 - 1.07 x10E9/L 02/05/2023 10:41 AM CDT [facility] Eosinophils Absolute 0.31 0 - 0.47 x10E9/L 02/05/2023 10:41 AM CDT [facility] Basophils Absolute 0.03 0 - 0.08 x10E9/L 02/05/2023 10:41 AM CDT [facility] Immature Granulocytes Absolute 0.01 0.00 - 0.06 x10E9/L 02/05/2023 10:41 AM CDT [facility] nRBC Auto 0 /100 WBC 02/05/2023 10:41 AM CDT [facility] Blood BLOOD SPECIMEN / Unknown Venipuncture / Unknown 02/05/2023 9:56 AM CDT 02/05/2023 10:29 AM CDT Natalya Godfrey DO LAB - HEMATOLOGY ORDERABLES [facility] [address] [place] [address] * (ABNORMAL) COMPREHENSIVE METABOLIC PANEL (02/05/2023 9:56 AM CDT) [facility] Glucose 108(H) 70 - 105 mg/dL 02/05/2023 10:56 AM CDT [facility] Sodium 138 136 - 145 mmol/L 02/05/2023 10:56 AM CDT [facility] Potassium 4.0 3.5 - 5.1 mmol/L 02/05/2023 10:56 AM CDT [facility] Chloride 106 98 - 107 mmol/L 02/05/2023 10:56 AM CDT [facility] CO2 24 23 - 31 mmol/L 02/05/2023 10:56 AM CDT [facility] Calcium 9.0 8.4 - 10.4 mg/dL 02/05/2023 10:56 AM CDT [facility] Anion Gap 8 8 - 18 mmol/L 02/05/2023 10:56 AM CDT [facility] BUN 10 7 - 18.7 mg/dL 02/05/2023 10:56 AM CDT [facility] Creatinine 0.77 0.57 - 1.11 mg/dL 02/05/2023 10:56 AM CDT [facility] Alkaline Phosphatase 73 40 - 150 U/L 02/05/2023 10:56 AM CDT [facility] ALT 22 0 - 61 U/L 02/05/2023 10:56 AM CDT [facility] AST 15 5 - 34 U/L 02/05/2023 10:56 AM CDT [facility] Protein Total 6.6 6.4 - 8.3 gm/dL 02/05/2023 10:56 AM CDT [facility] Albumin 3.7 3.5 - 5.2 gm/dL 02/05/2023 10:56 AM CDT [facility] Bilirubin Total 0.4 0.2 - 1.2 mg/dL 02/05/2023 10:56 AM [facility] eGFR by CKD-EPI >90 >=90 mL/min/1.7 3 m2 02/05/2023 10:56 AM T [facility] Blood BLOOD SPECIMEN / Unknown Venipuncture / Unknown 02/05/2023 9:56 AM CDT 02/05/2023 10:30 AM CDT Natalya Godfrey DO LAB - CHEMISTRY O RDERABLES [facility] [address] [place] [address] * CT RENAL STONE (02/05/2023 9:32 AM CDT) Anatomical Region Laterality Modality Abdomen Computed Tomogra phy 02/05/2023 9:43 AM CDT Narrative 02/05/2023 9:45 AM CDT PROCEDURE: CT RENAL STONE, DATE/TIME OF EXAM: 02/05/2023 9:33 AM, LOCATION [facility] INDICATION: R10.9: Unspecified abdominal pain CT abdomen pelvis HISTORY: Right-sided pain TECHNIQUE: Noncontrast CT is obtained without prior CT scan for comparison. There is right pyelocaliectasis and ureterectasis. A distal right ureteral stone is present at the ureterovesical junction measuring 0.5 cm. Small bilateral kidney stones are present. No left obstructive uropathy is seen. The left ureter and bladder appear grossly normal. The liver, spleen and pancreas are grossly normal. The gallbladder surgically absent. The adrenal glands are normal Visualized stomach and large and small bowel are normal without free air free fluid. The uterus and adnexa appear grossly normal. No retroperitoneal mass is seen. Heart size is normal. Lung bases are clear. DIAGNOSIS: Right obstructive uropathy is described Small bilateral kidney stones > Interpreting Provider: Naveen Mclaughlin MD on 02/05/2023 9:45 AM Procedure Note Naveen Mclaughlin MD - 02/05/2023 PROCEDURE: CT RENAL STONE, DATE/TIME OF EXAM: 02/05/2023 9:33 AM,LOCATION [facility] INDICATION: R10.9: Unspecified abdominal pain CT abdomen pelvis HISTORY: Right-sided pain TECHNIQUE: Noncontrast CT is obtained without prior CT scan forcomparison. There is right pyelocaliectasis and ureterectasis. A distal rightureteral stone is present at the ureterovesical junction measuring 0.5 cm. Small bilateral kidney stones are present. No left obstructive uropathy isseen. The left ureter and bladder appear grossly normal. The liver, spleen and pancreas are grossly normal. The gallbladder surgically absent. The adrenal glands are normal Visualized stomach and large and small bowel are normal without free air free fluid. The uterus and adnexa appear grossly normal. No retroperitoneal mass is seen. Heart size is normal. Lung bases are clear. DIAGNOSIS: Right obstructive uropathy is described Small bilateral kidney stones > Interpreting Provider: Naveen Mclaughlin MD on 02/05/2023 9:45 AM Natalya Godfrey DO CT ORDERABLES
--- OUTSIDE RECORDS SUMMARY | 2024-12-15 05:28 | XMS_ITS | Encounter Summary ---
Author Organization [facility] Address [address] [place] [address] Care Team Providers Care Psychotherapist Counselor Name Role Phone Monica Regalado DO Primary Care Provider [phone] Encounter Details Date Type Department Care Team (Latest Contact Info) Description 08/01/2024 VolunteerSpothart Message Enc [facility] [address] [place] [address] Monica Regalado DO [address] [place] [address] Shoulder pain, blurry vision, and chills Social History Tobacco Use Types Packs/Day Years Used Date Smoking Tobacco: Former Cigarettes Q uit: 12/21/2011 Smokeless Tobacco: Never Alcohol Use Standard Drinks/Week Comments Yes 0 (1 standard drink = 0.6 oz pure alcohol) Only drinks on special occasions. PHQ-2 Answer Date Recorded Patient Health Questionnaire-2 Score 0 06/27/2024 Comments No Sex and Gender Information Value Date Recorded Sex Assigned at Not on file Legal Sex Female 5:37 PM CDT Gender Identity Not on file Sexual Orientation Not on file documented as of this encounter Plan of Treatment Upcoming Encounters Date Type Department Care Team (Late st Contact Info) Description 01/23/2025 7:20 AM CDT [facility] [address] [place] [address] Monica Regalado DO [address] [place] [address] documented as of this encounter Visit Diagnoses Not on filedocumented in this encounter Care Teams Psychotherapist Counselor Relationship Specialty Start Date End Date Monica Regalado DO [address] [place] [address] PCP - General FAMILY PRACTICE 06/24/24 documented as of this encounter
--- OUTSIDE RECORDS SUMMARY | 2024-12-15 05:28 | XMS_ITS | Referral Summary ---
Author Organization [facility] Address [address] [place] [address] Care Team Providers Care Fishing Tool Supervisor Name Role Phone Unavailable Primary Care Provider Unavailabl e Source Comments [facility],non-the rehabilitation institute Affiliates and Associated Physician Practices is amultiple site organization consisting of ambulatory clinics and hospital sitesin [place], [place], [place] and [place]. This disclosure is being madepursuant to the Care Everywhere program and may not contain all information available regarding this patient. Last updated 18.[facility] Allergies Active Allergy Reactions Criticality Noted Date Comments Clindamycin Itching 02/05/2023 Hives Medications * Be aware that medications may not be up to date on this document. Alwaysverify current medications with the patient. Medication Sig Dispensed Refills Start Date End Date Status oxyCODONE-acetamino phen (Percocet) 5-325 MG tabletIndications:U reteral calculus Take 1 (one) tablet by mouth every 6 hours as needed for Pain 15 tablet 02/05/2023 Active tamsulosin (Flomax) 0.4 MG capsule Take 1 (one) capsule by mouth once daily after breakfast At the same time every day after a meal. 10 capsule 02/05/2023 Active ondansetron (Zofran) 4 MG tablet Take 1 (one) tablet by mouth every 6 hours as needed for Nausea/Vomiting 30 tablet 02/05/2023 Active Social History Tobacco Use Types Packs/Day Years [...] Mass Index 36.62 02/05/2023 8:31 AM CDT Plan of Treatment Not on file THALIA CASSIDY Personal/Family [address] [place] [address] THALIA CASSIDY Personal/Family [address] [place] [address] THALIA CASSIDY Personal/Family [address] [place] [address]
--- OUTSIDE RECORDS SUMMARY | 2024-12-15 05:28 | XMS_ITS | Data Portability ---
Author Organization [facility] Address [address] [place] [address] [place] [address] Assessment No assessment recorded. Plan of Treatment Reminders Order Date Submit Date Provider Last Modified By Organization Details Last Modified Time Details Appointments None recorded. Lab None recorded. Referral None recorded. Procedures None recorded. Surgeries None recorded. Imaging US, pelvis [address], [address], [address], [place], [address], 20:03:55 US, transvagina l [address], [facility] [address], [place], [address], 20:03:55 Medication Orders Diflucan 200 mg tablet [address] [facility] [address] [place], [address], 17:57:31 metronidazo le 500 mg tablet [address] [facility] [address], [address] [facility], [place], [address], 4 17:57:33 Patient TargetsNo targets recorded. Patient InstructionsNo instructions recorded. Reason for Referral None Reported. Results Created Date Observation Date Name Description Value Unit Range Abnormal Flag Note LastModifiedBy Organization Detail LastModifiedTime 01/21/2001/21/2024 pregn darwin test, urine HCG negati ve Not Available [facility] [address], [place], [address], 01/21/2024 17:12:52 01/21/20 24 01/21/2024 urina lysis , dipst ick Leukocytes trace Not Available [facility] alain[facility] [address], [place], [address], 01/21/2024 17:11:37 01/21/20 24 01/21/2024 urina lysis , dipst ick Nitrite normal Not Available [facility] [address], [place], [address], 01/21/2024 17:11:37 01/21/20 24 01/21/2024 urina lysis , dipst ick Urobilinogen normal Not Available [facility] [address], [place], [address], 01/21/2024 17:11:37 01/21/20 24 01/21/2024 urina lysis , dipst ick Protein trace Not Available [facility] [address], [place], [address], 01/21/2024 17:11:37 01/21/20 24 01/21/2024 urina lysis , dipst ick pH 5 Not Available [facility] [address], [place], [address], 01/21/2024 17:11:37 01/21/20 24 01/21/2024 urina lysis , dipst ick Blood trace Not Available [facility] [address], [place], [address], 01/21/2024 17:11:37 01/21/20 24 01/21/2024 urina lysis , dipst ick Specific [place] 1.030 Not Available [facility] [address], [place], [address], 01/21/2024 17:11:37 01/21/20 24 01/21/2024 urina lysis , dipst ick Ketone normal Not Available [facility] [address], [place], [address], 01/21/2024 17:11:37 01/21/20 24 01/21/2024 urina lysis , dipst ick Bilirubin normal Not Available [facility] gerard [address], [place], [address], 01/21/2024 17:11:37 01/21/20 24 01/21/2024 urina lysis , dipst ick Glucose normal Not Available [facility] [address], [place], [address], 01/21/2024 17:11:37 01/21/20 24 01/21/2024 urina lysis , dipst ick Appearance normal Not Available [facility] alaina [address], [place], [address], 01/21/2024 17:11:37 01/21/20 24 01/21/2024 urina lysis , dipst ick Color normal Not Available [facility] [address], [place], [address], 01/21/2024 17:11:37 01/29/20 24 01/29/2024 SURGI ELIZABETH PATHO LOGY surgical pathology SEE RESULT S BELOW CASE REPOR T: Surgi elizabeth Patho logy Repor t Case: [id number] Autho jovanny g Provi atif: Gordy Leiva MD Colle cted: 01/28 1317 Order ing Locat ion: [place] [facility] Recei hansa: 01/29 0202 Patho logis t: Kendy Stevens MD Speci men: Inder santillan, EMB FINAL DIAGN OSIS: Endom etriu m, biops y: -Prol ifera tive endom etriu m. -No endom etria l hyper plasi a or malig nant tumor ident ified . Elect eliza weaver by Kendy Stevens MD on 2023 at 10:12 AM ----- ----- ----- ----- ----- ----- ----- ----- ----- ----- ----- ----- ----- ----- ----- ----- ----- ---- CLINI ELIZABETH INFOR MATIO N: n92.6 MICRO SCOPI C DESCR IPTIO N: A micro scopi c exami natio n was perfo rmed. GROSS DESCR IPTIO N: A. Endom etriu m. The speci men is label ed with the patie nt's name, demog raphi cs and EMB . Recei hansa in forma alanis is a 4.0 x 2.0 x 0.2 cm aggre gate of palomares-b rown tissu e and mucoi d mater ial. The entir e speci men is submi tted in 2 casse ttes. Gross ed by Nils Mckeon Not Available [facility] (Lab) [address] [facility], [place], [address], 01/31/2024 11:15:41 01/24/20 24 01/24/2024 , pelvi s No observ ation record ed. [email or web address] [facility] [address], [place], [address], 01/24/2024 11:16:28 01/24/20 24 01/24/2024 US, trans sintia al No observ ation record ed. [email or web address] [facility] [address], [place], [address], 01/24/2024 11:16:19 01/24/20 24 01/24/2024 US, pelvi s No observ ation record ed. [email or web address] [facility] [address], [place], [address], 01/24/2024 21:46:44 Result Notes None recorded. Procedures Surgical History Date Name Laterality Status Provider Name and Address Organization Details Recorded Time 024 SALPINGECTOMY, LAPAROSCOPIC (SURG) completed Ulisses Farah'Nicolás [facility] 03/12/2024 16:20:27 024 Endometrial Biopsy completed Porter Leiva MD [address], [place], [address], [place] [facility] 01/29/2024 10:55:05 023 Date of Last Pap Smear completed [facility] 01/21/2024 17:04:10 023 extracorporeal shockwave lithotripsy of calculus of kidney completed [facility] 01/21/2024 17:09:04 022 intrauterine artificial insemination completed [facility] 10/05/2022 09:10:13 008 cholecystectomy completed [facility] 09/29/2022 10:57:20 004 extraction of wisdom tooth completed [facility] 09/29/2022 10:57:07 993 procedure on ankle completed [facility] 09/29/2022 10:57:48 993 procedure on ankle completed [facility] 09/29/2022 10:57:53 Imaging Results Imaging Date Name Status LastModified by Organization Details LastModified Time 01/24/2024 US, pelvis completed [email or web address] [facility] [address], [place], [address], 01/24/2024 11:16:28 01/24/2024 US, transvaginal completed [email or web address] [facility] [address], [place], [address], 01/24/2024 11:16:19 01/24/2024 US, pelvis completed [email or web address] [facility] [address], [place], [address], 01/24/2024 21:46:44 Procedure Notes None recorded. Medical Equipment None Reported. Allergies Allergen ID Allergen Name Allergen Category Reaction Reaction Severity Criticality Documentation Date Start Date Code Code System Note Provider Name and Address Organization Details Recorded Time 05697 clindamyc in Not available Not available Not available Not available 11/14/2021 2582 RxNorm Suki Goldman [place], [place] - [facility] 08:51:58 Medications Name Sig Start Date Stop Date Status Note LastModified by Organization Details LastModified Time medroxyprog esterone 10 mg tablet TAKE 1 TABLET BY MOUTH EVERY DAY FOR 7 DAYS 01/20 completed Not Available Not Available Not Available doxycycline hyclate 100 mg capsule TAKE 1 CAPSULE BY MOUTH TWICE DAILY FOR 10 DAYS 07/28 completed Not Available Not Available Not Available benzonatate 200 mg capsule TAKE 1 CAPSULE BY MOUTH THREE TIMES DAILY NEEDED FOR COUGH 01/20 completed Not Available Not Available Not Available tolterodine ER 4 mg capsule,ext ended release 24 hr TAKE ONE CAPSULE BY MOUTH EVERY DAY NEEDED 01/20 completed Not Available Not Available Not Available hydrocodone 5 mg-acetamin ophen 325 mg tablet TAKE 1 TABLET BY MOUTH EVERY 6 HOURS NEEDED 01/20 completed Not Available Not Available Not Available fluconazole 200 mg tablet TAKE 1 TABLET BY MOUTH EVERY OTHER DAY FOR 3 DOSES active Not Available Not Available No t Available ondansetron HCl 4 mg tablet TAKE 1 TABLET BY MOUTH EVERY 6 HOURS NEEDED FOR NAUSEA/VO MITING 07/28 completed Not Available Not Available Not Available prednisone 20 mg tablet TAKE 2 TABLETS BY MOUTH DAILY FOR 5 DAYS 01/20 completed Not Available Not Available Not Available Pregnyl 10,000 unit intramuscul ar solution Inject 1 unit by intramusc ular route. 11/13 completed Not Available Not Available Not Available metronidazo le 500 mg tablet TAKE 1 TABLET BY MOUTH TWICE DAILY WITH MEALS FOR 7 DAYS active Not Available Not Available No t Available tramadol 50 mg tablet TAKE 1 TABLET BY MOUTH EVERY 12 HOURS NEEDED 07/28 completed Not Available Not Available Not Available ondansetron 8 mg disintegrat ing tablet DISSOLVE 1 TABLET IN MOUTH EVERY 8 HOURS 04/02 completed Not Available Not Available Not Available oxycodone-a cetaminophe n 5 mg-325 mg tablet TAKE 1 TABLET BY MOUTH EVERY 4 HOURS NEEDED FOR PAIN 03/19 completed Not Available Not Available Not Available tamsulosin 0.4 mg capsule TAKE 1 CAPSULE BY MOUTH DAILY 01/20 completed Not Available Not Available Not Available phenazopyri dine 100 mg tablet 07/28 completed Not Available Not Available Not Available benzonatate 100 mg capsule TAKE 1 CAPSULE BY MOUTH THREE TIMES DAILY FOR 10 DAYS 07/28 completed Not Available Not Available Not Available hydrocodone 7.5 mg-acetamin ophen 325 mg tablet TAKE 1 TABLET BY MOUTH EVERY 8 HOURS NEEDED FOR PAIN 01/20 completed Not Available Not Available Not Available codeine 10 mg-guaifene sin 100 mg/5 mL oral liquid TAKE 10 ML BY MOUTH EVERY 4 HOURS NEEDED 07/28 completed Not Available Not Available Not Available letrozole 2.5 mg tablet TAKE 3 TABLETS BY MOUTH DAILY FOR 5 DAYS 01/20 completed Not Available Not Available Not Available albuterol sulfate HFA 90 mcg/actuati on aerosol inhaler INHALE 1 TO 2 PUFFS BY MOUTH EVERY 4 HOURS NEEDED FOR WHEEZING FOR 10 DAYS 07/28 completed Not Available Not Available Not Available ondansetron 4 mg disintegrat ing tablet DISSOLVE 1 TABLET ON THE TONGUE EVERY 8 HOURS NEEDED FOR NAUSEA OR VOMITING 07/28 completed Not Available Not Available Not Available fluticasone propionate 50 mcg/actuati on nasal spray,suspe nsion USE 2 SPRAYS IN EACH NOSTRIL ONCE DAILY 11/13 completed Not Available Not Available Not Available metformin ER 500 mg tablet,exte nded release 24 hr TAKE 1 TABLET BY MOUTH TWICE DAILY 07/28 completed Not Available Not Available Not Available doxycycline hyclate 100 mg tablet TAKE 1 TABLET BY MOUTH TWICE DAILY FOR 7 DAYS active Not Available Not Available No t Available amoxicillin 875 mg-potassiu m clavulanate 125 mg tablet TAKE 1 TABLET BY MOUTH TWICE DAILY FOR 10 DAYS 11/13 completed Not Available Not Available Not Available nitrofurant oin monohydrate /macrocryst als 100 mg capsule TAKE 1 CAPSULE BY MOUTH EVERY 12 HOURS FOR 7 DAYS 03/03 completed Not Available Not Available Not Available Vitals Date Recorded Body height Body mass index (BMI) Body weight Systolic blood pressure Diastolic blood pressure Provider Name and Address Organization Details Last Updated DateTime 01/29/2024 182.88 cm 33.9 kg/m2 133338.0 9 g 122 mm[Hg] 81 mm[Hg] Carmen Medina [facility] 4 09:31:02 Date Recorded Body height Body mass index (BMI) Body weight Systolic blood pressure Diastolic blood pressure Provider Name and Address Organization Details Last Updated DateTime 03/03/2024 182.88 cm 33.5 kg/m2 073318.3 2 g 116 mm[Hg] 79 mm[Hg] [facility] 4 09:29:17 Date Recorded Body height Body mass index (BMI) Body weight Systolic blood pressure Diastolic blood pressure Provider Name and Address Organization Details Last Updated DateTime 03/19/2024 182.88 cm 33.5 kg/m2 010693.3 2 g 123 mm[Hg] 83 mm[Hg] Jana Sauer [facility] 4 17:37:13 Date Recorded Body height Body mass index (BMI) Body weight Provider Name and Address Organization Details Last Updated DateTime 04/02/2024 182.88 cm 33.6 kg/m2 524562.91 g Aliyah Marino [facility] 04/02/2024 17:45:50 Date Recorded Systolic blood pressure Diastolic blood pressure Provider Name and Address Organization Details Last Updated DateTime 04/02/2024 125 mm[Hg] 80 mm[Hg] Alicia Ojeda, [facility]- [address], [place], [address], [facility] 04/02/2024 17:56:19 Social History Question Answer Notes LastModified by Organizat ion Details LastModified Time Tobacco Smoking Status Never Smoker Ly Lim peterson, [facility] 11/13/2022 09:54:06 Do You Have An Advance Directive? No [email or web address] Information not available 09/29/2022 What Is Your Level Of Alcohol Consumption? Occasional Information not available 11/14/2021 How Many Years Have You Consumed Alcohol? 12 [email or web address] Information not available 09/29/2022 Are You Blind Or Do You Have Difficulty Seeing? No [email or web address] Information not available 09/29/2022 What Is Your Level Of Caffeine Consumption? Occasional [email or web address] Information not available 09/29/2022 In The 14 Days Before Symptom Onset, Have You Had Close Contact With A Laboratory-confir med COVID-19 While That Case Was Ill? No [email or web address] Information not available 09/29/2022 In The 14 Days Before Symptom Onset, Have You Had Close Contact With A Person Who Is Under Investigation For COVID-19 While That Person Was Ill? No [email or web address] Information not available 09/29/2022 Have You Been To An Area Known To Be High Risk For COVID-19? No Information not available 09/29/2022 Are You Deaf Or Do You Have Serious Difficulty Hearing? No [email or web address] Information not available 09/29/2022 What Type Of Diet Are You Following? REGULAR [email or web address] Information not available 09/29/2022 What Is The Highest Grade Or Level Of School You Have Completed Or The Highest Degree You Have Received? 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 Yes [email or web address] Information not available 09/29/2022 Have You Ever Been Counseled For Unhealthy Alcohol Use? No [email or web address] Information not available 11/13/2022 Do You Use Protection During Sex? No [email or web address] Information not available 09/29/2022 Do You Use Your Seat Belt Or Car Seat Routinely? Yes Information not available 09/29/2022 Are You Sexually Active? Yes [email or web address] Information not available 03/03/2024 Do You Have Smoke And Carbon Monoxide Detectors In Your Home? Yes Information not available 09/29/2022 How Much Tobacco Do You Smoke? No [email or web address] Information not available 09/29/2022 Do You Feel Stressed (tense, Restless, Nervous, Or Anxious, Or Unable To Sleep At Night)? [id number] [email or web address] Information not available 09/29/2022 Do You Use Any Illicit Or Recreational Drugs? No Information not available 11/14/2021 Do You Use Sunscreen Routinely? Yes [email or web address] Information not available 09/29/2022 Has Tobacco Cessation Counseling Been Provided? No [email or web address] Information not available 11/13/2022 Have You Used IV Drugs? No [email or web address] Information not available 09/29/2022 Do You Or Have You Ever Used Any Other Forms Of Tobacco Or Nicotine? No [email or web address] Information not available 11/13/2022 Sex: Unknown Functional Status Question Answer Note LastModified by Organizat ion Details LastModified Time Do you have difficulty walking or climbing stairs? No [email or web address] Information not available 11/13/2022 Are you able to walk? YESWOREST [email or web address] Information not available 09/29/2022 Are you able to care for yourself? Yes [email or web address] Information not available 11/13/2022 Do you have difficulty dressing or bathing? No Information not available 11/13/2022 What is your exercise level? Occasional [email or web address] Information not available 09/29/2022 Mental Status None recorded. Family History Relationship Description Onset Age of this Age Resolved Age Notes LastModified by Organization Details LastModified Time Paternal Grandmother Heart disease [email or web address] Not available 01/28 09:31:33 Paternal Grandmother Osteoporosis [email or web address] Not availabl e 01/29/2024 09:31:33 Father Hypercholest erolemia [email or web address] Not available 01/28 09:31:33 Maternal Grandmother Heart disease [email or web address] Not available 01/28 09:31:33 Sister Asthma [email or web address] Not available 01/29/2024 09:31:33 Medical History Condition Response Other N Blood Transfusion N Dermatologic Disorders N Gestational Diabetes N Anxiety Disorder Y Autoimmune disease N Arthritis N Polyps N Infertility Y Acid Reflux (GERD) N Cancer N Varicosities N Stroke N Neurologic/Epilepsy N Fibromyalgia N Headaches N Kidney Disease N Heart Problems N Kidney or Bladder Problems Y Eating Disorder N Art (IVF or FET) Y Hepatitis/Liver Disease N No Past Medical History N Urinary Tract Infection N Asthma N Trauma/Violence N Thrombophilias N Allergies (Food, seasonal, environmental ) N Breast Cancer N Drug/Latex Allergies/Reactions N Lung Disease N Defects or Inherited Disease N Breast Problem N Hematologic disorders N Anesthesia Complications N History of STI N Deep Vein Thrombosis N Polycystic ovary syndrome Y History of abnormal pap N Endometriosis Y High Cholesterol N Thyroid Problems N GI Problems N Anemia N Psychiatric Illness N Ovarian Cancer N Diabetes N Pulmonary (TB, Asthma) N Eczema N Abuse/Domestic Violence N Depression/ depression Y Heart Disease N Pre-Eclampsia N Hypertension N Osteoporosis N Gynecological History Statement/Question Response Abnormal Pap N Flow Moderate Date of Last Mammogram Date of LMP 03/17/2024 Was last menstrual period normal N STIs/STDs N Duration of Flow (days) 5 Current Control Method Ablation Sexually Active? Y Menses Monthly Y Date of DEXA bone scan Age of first menstrual cycle 11 Date of Last Pap Smear 07/30/2023 Sexual Problems? N LMP Definite N Obstetrics History GPAL:G 1 P 0 0 1 0 Type Value Spontaneous 1 Living 0 Total 1 Past Encounters Encounter ID Performer Location Encounter Start Date Encounter Closed Date Diagnosis/Indication Diagnosis SNOMED-CT Code Diagnosis ICD10 Code Diagnosis Note [id number] Obdulia Carmichael MD [facility] [address] [address] 11/14/2021 09:31:03 11/16/2021 11:05:59 test negative 167559192 Z32.02 Polycystic ovary syndrome 235433122 E28.2 Anovulation 99998820 N97 .0 Body mass index 30+ - obesity 405648272 Z68.37 Trying to conceive 68893 9001 Z31.9 Hot sweats 571307341 R61 Elevated blood-pressure reading without diagnosis of hypertension 605104791 R03.0 [id number] [facility] [address],[place] [address] 01/02/2022 09:22:16 01/02/2022 10:14:50 Irregular periods 42890132 N92.6 [id number] Obdulia Carmichael MD [facility] [address],[place] [address] 01/03/2022 17:37:17 01/04/2022 16:35:16 Polycystic ovary syndrome 680876096 E28.2 Anovulation 36393721 N97 .0 Trying to conceive 49649 9001 Z31.9 [id number] Jordana Lara [facility] [address],[place] [address] 03/22/2022 15:25:52 03/22/2022 16:14:16 Pain in pelvis 93500053 R10.[id number] [facility] [address],[place] [address] 09/29/2022 10:37:02 09/29/2022 11:52:25 Female infertility 2709125 N97.9 follicle check [id number] [facility] [address],[place] [address] 10/04/2022 10:17:16 10/04/2022 10:55:19 Female infertility 5685713 N97.9 [id number] Carmen Medina [facility] [address],[place] [address] 10/04/2022 19:52:15 10/05/2022 16:06:21 Trying to conceive 678449110 Z31.[id number] [facility] [address],[place] [address] 10/05/2022 09:05:36 10/06/2022 11:36:23 Artificial insemination 80904439 Z31.83 [id number] Obdulia Carmichael MD [facility] [address],[place] [address] 11/13/2022 09:52:29 11/13/2022 10:42:57 Anovulation 40831158 N97.0 Polycystic ovary syndrome 008650921 E28.2 Female infertility 38579 08 N97.9 [id number] Porter Leiva MD [facility] [address],[place] [address] 07/28/2023 11:17:59 07/30/2023 10:10:30 Amenorrhea 36177589 N91.2 Gynecologi c examination 98539713 Z01.419 Annual gynecologi elizabeth exam performed. Patient will come back in a year unless there are new symptoms. Suggest Calcium with Vitamin D if not eating in diet. Patient advised to get annual flu shot. Recommend yearly physicals and preform monthly breast exams. Genetic testing is available for patients with family history of cancer. Engage in safe sexual practices, use condoms. Encouraged to have daily exercise. Avoid tobacco and illicit drugs, moderation of alcohol. If BMI greater than 25 dietary consult advised. If you have any questions please call or email. Pap smear-toda y laboratory evaluation -ordered [id number] Porter Leiva MD [facility] [address],[place] [address] 01/21/2024 16:41:37 01/21/2024 17:52:07 Pain in pelvis 46708448 R10.2 Menorrhagia 607530455 N9 2.0 To proceed with evaluation . We will consider repeating labs. Pelvic ultrasound . To return to discuss ultrasound results and see me. Considerin g treatment. , will ikely be cyclic progestero ne. spent over 40 minutes face-to-fa ce. More than 50% was counseling . Two complex problems. [id number] Fanny Murguia [facility] [address],[place] [address] 01/24/2024 09:25:07 01/24/2024 10:07:51 Pain in pelvis 89175152 R10.2 N93.9 [id number] Porter Leiva MD [facility] [address],[place] [address] 01/29/2024 09:26:43 01/29/2024 11:17:50 Pain in pelvis 56872888 R10.2 N93.9 Dysmenorrhea 997096889 N 94.6 Menorrhagia 335173327 N9 2.0 33-year-ol d female with pelvic pain who presents for follow-up on ultrasound . Ultrasound appears normal. We discussed treatment options in detail. We discussed her ultrasound results. I shared images with her. We talked about medical treatments . We talked about procedures and surgical treatments . We spent more than 40 minutes face-to-fa ce. We essentiall y made a decision perform surgery. She is still me use progestero ne only control pills. However, she is likely to proceed with laparoscop ic bilateral Salpingect omyand endometria l ablation. we spent over 40 minutes face-to-fa ce. More than 50% was counseling . Made a decision to perform surgery. agreed to endometria l biopsy today. She needs to rule out endometria l cancer. [id number] Porter Leiva MD [facility] [address] [address] 03/03/2024 09:20:41 03/03/2024 10:14:47 Menorrhagia 871541245 N92.0 this patient is a 34-year-ol d female with severe menorrhagi a. We have agreed to perform laparoscop ic bilateral salpingect grant and endometria l ablation with hysterosco py. She understand s risks, benefits, and alternativ es. She is completed the informed consent process and is ready to proceed. [id number] Porter Leiva MD [facility] [address] [address] 03/19/2024 17:27:54 03/19/2024 17:59:01 Postoperative care 475462626 Z48.89 34-year-ol d who is 1 week postop from a salpingect grant and ablation. She is having some heavy bleeding. We agreed that we could watch this. She will update us next week on her bleeding. She denies any fatigue, shortness of breath, dizziness. To follow-up next week. Denies any fevers or chills. [id number] Alicia Ojeda , [facility] [address] [address] 04/02/2024 17:40:37 04/14/2024 06:33:18 Vaginitis 38345745 N76.0 Today we agreed to another round of flagyl coupled with diflucan to prevent yeast from abx use. Counseled on medication R/B's, Most common side effects, & use. All questions were answered to patient satisfacti on. Rx sentReturn if issues persist or worsen.Dec lined std screening Time spent in visit is a total of 21 mins with at least 50% of visit consisting of counseling and review of plan of care. Health Concerns Section Related Observation LastModified by Organization Detai ls LastModified Time None Recorded Concern Status LastModified by Organization Details LastModified Time None Recorded Advance Directives Directive N: Payers Encounter Date Sequence Insurance Name Policy Number Policy Sims Covered Member ID Sims Member ID Guarantor Name 01/24/2024 1 [facility] [id number] [id number] [facility] 01/29/2024 1 [facility] [id number] Contreras Werle [phone] Thalia Werle 03/03/2024 1 [facility] [id number] Contreras Werle [id number] Thalia Werle 03/19/2024 1 [facility] [id number] Contreras Werle [id number] Thalia Werle 04/02/2024 1 [facility] [id number] Contreras Werle [id number] [facility] Notes Date Note Type Note Provider Name and Address Organization Details Recorded Time 01/29/2024 text/html 33-year-old femcarleen le with pelvic pain who presents for follow-up on ultrasound. Ultrasound appears normal. We discussed treatment options in detail. We discussed her ultrasound results. I shared images with her. We talked about medical treatments. We talked about procedures and surgical treatments. We spent more than 40 minutes [id number]. We essentially made a decision perform surgery. She is still me use progesterone only control pills. However, she is likely to proceed with laparoscopic bilateral Salpingectomyand endometrial ablation. we spent over 40 minutes [id number]. More than 50% was counseling. Made a decision to perform surgery. agreed to endometrial biopsy today. She needs to rule out endometrial cancer. Porter Leiva MD [address], [place], [address], [facility] 01/29/2024 10:55:34 03/03/2024 text/html this patient is a 34-year-old female with severe menorrhagia. We have agreed to perform endometrial ablation laparoscopic bilateral salpingectomy. The patient understands the procedure. The procedure was described to the patient in great detail. the patient also understands the risks. The risks were also explained in detail. She understands that injuries May occur during surgery. She understands these injuries can result in hospitalization, more surgery, and severe illness. She understands there is risk of hemorrhage and infection. Porter Leiva MD [address], [place], [address], [facility] 03/03/2024 10:13:54 03/19/2024 text/html 34-year-old who is 1 week postop from a salpingectomy and ablation. She is having some heavy bleeding. We agreed that we could watch this. She will update us next week on her bleeding. She denies any fatigue, shortness of breath, dizziness. To follow-up next week. Denies any fevers or chills. Porter Leiva MD [address], [place], [address], [facility] 03/19/2024 17:56:45 04/02/2024 text/html Vaginal/Vulvar ProblemReported bypatient.Location:[facility] Onset/Timing:abrupt Duration:present for 1-7 days Quality:itching; irritation; +discharge and odor Severity:moderate Context:sexually active (Monogamous) Alleviating Factors:none Aggravating Factors:none Associated Symptoms:no vaginal pain; no vulvar itching/irritation; no vulvar swelling/erythema; no vulvar pain; no vulvar lesions; no pelvic pain; no dyspareunia; no dysuria; no fever; no abdominal pain;vaginal itching;vaginal irritation LORENA Skelton- [address], [place], [address], [place] [facility] 04/13/2024 18:14:52 OBGyn Episode Ob Episode Information Episode Created Date Number of Fetuses Patient Bloodtype Patient rh Status Prepregnancy Weight lbs Domestic Partner Domestic Partner Phone Father Name Data Support Specialist Status 07/24/20 22 1 CLOSED Fetus Data First Name Last Name Admitted to NICU Weight (g) Sex Living Outcome Pediatric Complications Fetus ID Race Codes Race Delivery Type , Spontane ous [id number] Mian Calculation Initial Mian Date Initial Exam Date Initial Exam Provider Initial Ultrasound Date Last Menstrual Period Date Ultra Sound Weeks Gestation 0 Eighteen To Twenty Week Mian Update Ultra Sound Date Fundal Height At Umbil Quickening Date Ultra Sound Latest Weeks Gestation Final Mian Confirmed By Final Mian Confirmed Date Final Mian Date Ultra Sound Latest Days Gestation 0 0 Menstrual History Last Menstrual Date Menses Monthly On Bcp Conception Prior Menses Frequency Hcg Plus Date Menarche Onset Age Delivery Information Delivery Date Delivery Type Labor Anesthesia Weeks Gestation Incision Type Labor Labor Length Hrs Delivered By Post Complications Tubal Sterilization Discharge Date Comments 2 Discharge Information Feeding Method Contraceptive Method Maternal HG B and HCT Levels
--- OUTSIDE RECORDS SUMMARY | 2024-12-15 05:28 | XMS_ITS | Clinical Summary ---
Author Organization [facility] Address [address] [place] [id number] Care Team Providers Care Collateral Clerk Name Role Phone Monica Regalado DO Primary Care Provider [phone] Allergies Active Allergy Reactions Criticality Noted Date Comments Clindamycin Hives 11/30/2017 Medications Multiple Vitamin (MULTIVITAMIN ADULT OR) Active hydrOXYzine (ATARAX) 25 MG tabletIndication s:Generalized anxiety disorder Take 1 tablet (25 mg total) by mouth every 8 (eight) hours as needed for Anxiety. 90 tablet 1 07/25/2024 01/22/20 25 Active rosuvastatin (CRESTOR) 10 MG tabletIndication s:Elevated LDL cholesterol level Take 1 tablet (10 mg total) by mouth nightly at bedtime. 90 tablet 1 07/25/2024 01/22/20 25 Active Active Problems Problem Noted Date Diagnosed Date Elevated LDL cholesterol level 07/25/2024 Generalized anxiety disorder 06/27/2024 PCOS (polycystic ovarian syndrome) 06/27/2024 Class 1 obesity without seri ous comorbidity with body mass index (BMI) of 32.0 to 32.9 in adult, unspecified obesity type 06/27/2024 Marijuana use 06/27/2024 Engages in vaping 06/27/2024 Family History Medical History Relation Comments Alcohol Abuse Father He has been sobe r for 18 years now. High cholesterol Father Hypertension Father Arthritis Maternal Grandmother Cancer Maternal Uncle Kidney Stones Paternal Aunt Heart Disease Paternal Grandmother Kidney Stones Paternal Uncle Anxiety Sister None Neg Hx Relation Status Comments Adopted Daughter Alive Biological pare nts in [place] - substance abuse Father Maternal Grandmother Maternal Uncle Paternal Aunt Paternal Grandmother Paternal Uncle Sister Alive Social History Tobacco Use Types Packs/Day Years Used Date Smoking Tobacco: Former Cigarettes Q uit: 12/21/2011 Smokeless Tobacco: Never Tobacco Cessation:Counseling Given: Yes Alcohol Use Standard Drinks/Week Comments Yes 0 [...] Sign Reading Time Taken Comments Blood Pressure 107/75 07/25/2024 6:57 AM CDT Pulse 74 07/25/2024 6:57 AM CDT Temperature 36.7 C (98.1 F) 07/25/2024 6:57 AM CDT Respiratory Rate 18 07/25/2024 6:57 AM CDT Oxygen Saturation 97% 07/25/2024 6:57 AM CDT Inhaled Oxygen Concentration - - Weight 110.2 kg (243 lb) 07/25/2024 6:57 AM CDT Height 182.9 cm (6') 07/25/2024 6:57 AM CDT Body Mass Index 32.96 07/25/2024 6:57 AM CDT Plan of Treatment Upcoming Encounters Date Type Department Care Team (Late st Contact Info) Description 01/23/2025 7:20 AM CDT Office Visit [facility] [place] [address] [place] [address] Monica Regalado, [address] [place] [address] Health Maintenance Due Date Last Done Comments Annual Physical 02/27/1991 Hepatitis C 02/27/2006 DTaP, Tdap and Td Vaccines ( 1 - Tdap) 02/27/2007 Hepatitis B Vaccines (1 of 3 - 19+ 3-dose series) 02/27/2007 COVID-19 Vaccine (3 - 2023-2 5 season) 2024 02/12/2021, 01/22/2021 Influenza Adult (#1) 2024 PHQ-2 ([facility]) 10/22/2024 06/27/2024 Cervical Cancer Screening Pa p Smear (Age 30 to 64) Every 3 Years 07/30/2026 07/30/2023, 01/21/2010 Cervical Cancer Screening Pa p with HPV Testing (Age 30 to 64) Every 5 Years 08/30/2028 08/30/2023, 07/30/2023, 01/21/2010 Cervical Cancer Screening wi th HPV 08/30/2028 HPV Vaccines Aged Out No longer eligi ble based on patient's age to complete this topic Meningococcal B Vaccine Aged Out No l onger eligible based on patient's age to complete this topic Meningococcal Vaccine Aged Out No ange rafita eligible based on patient's age to complete this topic Pneumococcal Vaccine: Pediatrics (0 to 5 Years) and At-Risk Patients (6 to 64 Years) Aged Out No longer eligible b ased on patient's age to complete this topic RSV Immunizations Under 20 Months Aged Out No longer eligible b ased on patient's age to complete this topic Procedures Procedure Name Priority Date/Time Associated Diagnosis Comments OUTSIDE CYTOPATH CERV/VAG IN TERPRET (PAP) 08/30/2023 from Last 3 Months or Most Recently Relevant to Health Maintenance Results * PAP SMEAR WITH HPV (08/30/2023) 08/30/2023 [facility] Scanned SCANNING Final Resu lt from Last 3 Months or Most Recently Relevant to Health Maintenance Insurance [facility] Care Teams Collateral Clerk Relationship Specialty Start Date End Date Monica Regalado DO [address] [place] [address] PCP - General FAMILY PRACTICE 06/24/24
--- OUTSIDE RECORDS SUMMARY | 2024-12-15 05:28 | XMS_ITS | Encounter Summary ---
Author Organization [facility] Address [address] [place] [address] Care Team Providers Care Guide Winder Name Role Phone Monica Regalado DO Primary Care Provider [phone] Encounter Details Date Type Department Care Team (Late Contact Info) Description 06/30/2024 [employer] Message Enc [facility] Medical [facility] Mult[facility]pec[facility]ty [facility] [place] [id number] [place] [address] [facility], [facility] Provider lab results Social History Tobacco Use Types Packs/Day Years [...] Description 01/23/2025 7:20 AM CDT [facility] [place] [address] [place] [address] Monica Regalado DO [address] [place] [address] documented as of this encounter Visit Diagnoses Not on filedocumented in this encounter Care Teams Guide Winder Relationship Specialty Start Date End Date Monica Regalado DO [address] [place] [address] PCP - General FAMILY PRACTICE 06/24/24 documented as of this encounter
--- OUTSIDE RECORDS SUMMARY | 2024-12-15 05:28 | XMS_ITS | Encounter Summary ---
Author Organization [facility] Address [address] [place] [address] Care Team Providers Care Neurology Specialist Name Role Phone Monica Regalado DO Primary Care Provider [phone] Encounter Details Date Type Department Care Team (Late st Contact Info) Description 06/25/2024 L2C Message [email or web address] [facility] INFO [facility] Provider Name Change Social History Tobacco Use Types Packs/Day Years Used Date Smoking Tobacco: Never Smokeless Tobacco: Never Alcohol Use Standard Drinks/Week Comments Yes 0 (1 standard drink = 0.6 oz pur e alcohol) SOCIAL PHQ-2 Answer Date Recorded Patient Health Questionnaire-2 Score 0 06/27/2024 Comments No Sex and Gender Information Value Date Recorded Sex Assigned at Not on file Legal Sex Female 5:37 PM CDT Gender Identity Not on file Sexual Orientation Not on file documented as of this encounter Plan of Treatment Upcoming Encounters Date Type Department Care Team (Late Contact Info) Description 01/23/2025 7:20 AM CDT Office Visit [facility] [place] [address] [place] [address] Monica Regalado DO [address] [place] [address] documented as of this encounter Visit Diagnoses Not on filedocumented in this encounter Care Teams Neurology Specialist Relationship Specialty Start Date End Date Monica Regalado DO [address] [place] [address] PCP - General FAMILY PRACTICE 06/24/24 documented as of this encounter
--- OUTSIDE RECORDS SUMMARY | 2024-12-15 05:28 | XMS_ITS | Clinical Summary ---
Author Organization [facility] Address [address] [place] [address] Care Team Providers Care Surface Miner Name Role Phone Unavailable Primary Care Provider Unavailabl e Source Comments [facility],non-owned Affiliates and Associated Physician Practices is amultiple site organization consisting of ambulatory clinics and hospital sitesin [place], [place], [place] and [place]. This disclosure is being madepursuant to the Care Everywhere program and may not contain all information available regarding this patient. Last updated 18.[employer] [facility] Allergies Active Allergy Reactions Criticality Noted Date [...] 02/05/2023 8:31 AM CDT Plan of Treatment Health Maintenance Due Date Last Done Comments PAP SMEAR 1988 HIV SCREENING 02/27/2003 HEPATITIS C SCREENING 02/23/2006 DTAP/TDAP/TD VACCINES (1 - Tdap) 02/27/2007 HEPATITIS B VACCINE (1 of 3 - 19+ 3-dose series) 02/27/2007 COVID-19 VACCINE (2023-2 5 season) 2024 INFLUENZA VACCINE (#1) 2024 DEPRESSION SCREENING 10/22/2024 ZOSTER VACCINE (1 of 2) 02/27/2038 HIB VACCINE Aged Out No longer eligi ble based on patient's age to complete this topic HPV VACCINE Aged Out No longer eligi ble based on patient's age to complete this topic MENINGOCOCCAL (Group B) VACCINE Aged Out No longer eligible based on patient's age to complete this topic MENINGOCOCCAL VACCINE Aged Out No ange rafita eligible based on patient's age to complete this topic PNEUMOCOCCAL VACCINE Aged Out No long er eligible based on patient's age to complete this topic THALIA CASSIDY Personal/Family [address] [place] [address] THALIA CASSIDY Personal/Family [address] [place] [address] THALIA CASSIDY Personal/Family [address] [place] [address]
[2024-12-15 05:59] LABS: Basophils Percent Auto 0.3 % (0.2-1.2); Eosinophils Absolute Auto 0.2 K/mm3 (0-0.3); Eosinophils Percent Auto 2.7 % (0-4.4); Hematocrit 41.8 % (37.0-47.0); Hemoglobin 13.9 g/dL (12.0-15.0); Immature Granulocyte Absolute 0.02 K/mm3 (0.00-0.031); Immature Granulocyte Percent A 0.3 % (0-0.5); Lymphocytes Absolute Auto 1.73 K/mm3 (0.9-3.2); Lymphocytes Percent Auto 23.6 % (18.3-44.2); Mean Corpuscular HGB Conc 33.3 g/dl (32-36); Mean Corpuscular Hemoglobin 29.2 pg (26-34); Mean Corpuscular Volume 87.8 fl (80-100); Mean Platelet Volume 9.3 fl (7.4-10.4); Monocytes Absolute Auto 0.5 K/mm3 (0.1-0.6); Monocytes Percent Auto 6.5 % (2.6-8.5); Neutrophils Absolute Auto 4.9 K/mm3 (1.3-6.7); Neutrophils Percent Auto 66.6 % (45.5-73.1); Platelet Count Result 202 k/mm3 (150-375); Red Blood Count 4.76 M/mm3 (4.2-5.4); Red Cell Distribution Width 11.9 % (11.5-14.5); White Blood Count 7.3 K/mm3 (4.5-10.0)
--- NOTE | 2024-12-15 06:04 | PC.NURSE ---
This RN spoke with ERP, in regards to patients symptoms and history of kidney stones with stent placement. VORB to order CT without contrast to eval for stone.
[2024-12-15 06:10] LABS: BEDSIDEPREGUCG Negative (Negative)
[2024-12-15 06:12] LABS: Alanine Aminotransferase 32 U/L (6-35); Albumin Level 3.8 g/dL (3.5-5.1); Alkaline Phosphatase 80 U/L (38-126); Anion Gap 8 mmol/L (4-12); Aspartate Amino Transferase 26 U/L (14-36); Bilirubin,Total 0.9 mg/dL (0.2-1.3); Blood Urea Nitrogen 8 mg/dL (7-17); Calcium 8.6 mg/dL (8.4-10.2); Carbon Dioxide 25 mmol/L (22-30); Chloride 102 mmol/L (98-107); Estimated Glomerular Filt Rate > 60; Glucose 126 mg/dL (65-110); Potassium 3.6 mmol/L (3.4-5.0); Sodium 135 mmol/L (137-145)
--- NOTE | 2024-12-15 06:15 | PC.NURSE ---
Patient taken to CT at this time.
[2024-12-15 06:22] LABS: Bacteria Urine None Seen /hpf; RBC Urine >100 /hpf (0-2); Squamous Epithelial Cell Urine Occasional /hpf (Few)
[2024-12-15 06:51] LABS: Add Urine Microscopic? YES; Appearance Urine Clear (Clear); Bilirubin Urine Negative (Negative); Blood Urine 3+ (Negative); Color Urine Dark Yellow (Yellow); Glucose Urine UA Negative (Negative); Ketones Urine 1+ mg/dL (Negative); Leukocyte Esterase Ur Negative LEU/UL (Negative); Nitrate Urine Negative (Negative); Protein Urine 2+ mg/dL (Negative); Specific Grav Ur 1.021 (1.001-1.035); pH Urine 5.5 (5.0-9.0)
--- NOTE | 2024-12-15 07:19 | ED_ITS ---
HPI - General Adult General Chief complaint: Abdominal Pain Stated complaint: L flank pain Time Seen by Provider: 12/15/24 06:53 History of Present Illness HPI narrative: 34-year-old female present to the emergency department for evaluation for acute onset of left flank pain that started approximately 230 morning lasted until approximately 530. Patient does have a prior history of kidney stones and has had previous stent placement. Patient's most recent some placement was approximately 2 years ago. Patient describes the pain as very sharp rating from her left flank around to her left lower quadrant. Patient states the pain did spontaneous resolved. At time of evaluation patient declines having any current pain. Patient states she does have some mild burning with urination Related Data Allergies Allergy/AdvReac Type Severity Reaction Status Date / Time clindamycin Allergy Rash Verified 12/15/24 05:55 Review of Systems 2 Review of Systems: All systems reviewed & are unremarkable except as noted in HPI and below PMFSH Past Medical History Medical History No active medical problems Social History Social History Years smoked: 2 Smoking status: Former smoker Tobacco type: cigarettes and e-cigarettes/vaping Alcohol use details: Socially Substance use: never Substance use type: marijuana Other substance usage details: nightly for sleep Gender identity (if verbalized by the patient): Female Spiritual care concerns: No Exam 2 Narrative: APPEARANCE: Well appearing, no pain, no distress, well-nourished. HEAD: normocephalic, atraumatic. EYES: PERRLA/EOMI, conjunctivae clear. NOSE: Normal no drainage EARS:TMS clear with good light reflex. THROAT: Pharynx clear, no exudate. NECK: Supple. No adenopathy, no masses. RESPIRATORY: Airway patent, respirations nonlabored. Clear to auscultation bilaterally, no rales, rhonchi, wheezing. CARDIOVASCULAR: Regular rate and rhythm without murmurs rubs or gallops. ABDOMINAL: Soft, nontender, nondistended, normal bowel sounds MUSCULOSKELETAL: Moves all extremities. Strength/ROM intact, No edema, No calf tenderness. NEURO: Alert. Cranial nerves II through XII intact. Good gait. Good coordination SKIN: Warm, dry. Normal Color Course Vital Signs Vital signs: Vital Signs Pulse Rate 72 12/15/24 05:27 Respiratory Rate 22 H 12/15/24 05:27 Blood Pressure 111/74 12/15/24 05:27 Pulse Oximetry 100 12/15/24 05:27 Temperature 97.9 F 12/15/24 07:48 Pulse Rate 78 12/15/24 07:48 Respiratory Rate 16 12/15/24 07:48 Blood Pressure 128/80 12/15/24 07:48 Pulse Oximetry 100 12/15/24 07:48 Medical Decision Making MDM Narrative Medical decision making narrative: 34-year-old female present to the emergency department for evaluation for left flank pain. Patient is currently pain-free on evaluation. Patient is currently afebrile with no leukocytosis and hemoglobin of 13.9. Patient has no acute abnormalities on her CMP was normal kidney function. UA did have +1 ketones +3 blood, greater than 100 red blood cells but only 6-10 white blood cells and no bacteria was seen, urine culture is pending. I do suspect the patient most likely has a passed renal calculi. I believe that the burning with urination is secondary to the passed stone. Low concern for urinary tract infection at this time. Urine culture was pending. Patient was comfortable the plan for discharge and close follow-up. Patient declined any medications for pain control. Patient was educated on reasons to return to the emergency department. All questions concerns were addressed. Differential Diagnosis Differential Diagnosis: UTI, kidney stone, colitis, diverticulitis Vital Signs Vital Signs: Vital Signs Pulse Rate 72 12/15/24 05:27 Respiratory Rate 22 H 12/15/24 05:27 Blood Pressure 111/74 12/15/24 05:27 Pulse Oximetry 100 12/15/24 05:27 Temperature 97.9 F 12/15/24 07:48 Pulse Rate 78 12/15/24 07:48 Respiratory Rate 16 12/15/24 07:48 Blood Pressure 128/80 12/15/24 07:48 Pulse Oximetry 100 12/15/24 07:48 Lab Data Lab results reviewed: Yes I reviewed the patient's lab results. 12/15/24 05:52 12/15/24 05:52 Labs: Lab Results 12/15/24 12/15/24 12/15/24 Range/Units 05:52 06:07 06:08 WBC 7.3 (4.5-10.0) K/mm3 RBC 4.76 (4.2-5.4) M/mm3 Hgb 13.9 (12.0-15.0) g/dL Hct 41.8 (37.0-47.0) % MCV 87.8 (80-100) fl MCH 29.2 (26-34) pg MCHC 33.3 (32-36) g/dl RDW 11.9 (11.5-14.5) % Plt Count 202 (150-375) k/mm3 MPV 9.3 (7.4-10.4) fl Immature Gran % (Auto) 0.3 (0-0.5) % Neut % (Auto) 66.6 (45.5-73.1) % Lymph % (Auto) 23.6 (18.3-44.2) % Morgan % (Auto) 6.5 (2.6-8.5) % Eos % (Auto) 2.7 (0-4.4) % Baso % (Auto) 0.3 (0.2-1.2) % Lymph # (Auto) 1.73 (0.9-3.2) K/mm3 Morgan # (Auto) 0.5 (0.1-0.6) K/mm3 Eos # (Auto) 0.2 (0-0.3) K/mm3 Baso # (Auto) 0.0 (0.0-0.1) K/mm3 Abs Immat Gran (auto) 0.02 (0.00-0.031) K/mm3 Absolute Neuts (auto) 4.9 (1.3-6.7) K/mm3 Absolute Nucleated RBC 0.000 (0.0-0.012) K/mm3 Nucleated RBC % 0.0 (0.0-0.2) % Sodium 135 L (137-145) mmol/L Potassium 3.6 (3.4-5.0) mmol/L Chloride 102 (98-107) mmol/L Carbon Dioxide 25 (22-30) mmol/L Anion Gap 8 (4-12) mmol/L BUN 8 (7-17) mg/dL Creatinine 0.60 L (0.7-1.0) mg/dL Estim Creat Clear Calc Not Reportable Estimated GFR > 60 (59 - ) Glucose 126 H (65-110) mg/dL Calcium 8.6 (8.4-10.2) mg/dL Total Bilirubin 0.9 (0.2-1.3) mg/dL AST 26 (14-36) U/L ALT 32 (6-35) U/L Alkaline Phosphatase 80 (38-126) U/L Total Protein 7.0 (6.3-8.2) g/dL Albumin 3.8 (3.5-5.1) g/dL Urine Color Dark yellow (Yellow) Urine Appearance Clear (Clear) Urine pH 5.5 (5.0-9.0) Ur Specific [place] 1.021 (1.001-1.035) Urine Protein 2+ H (Negative) mg/dL Urine Glucose (UA) Negative (Negative) mg/dL Urine Ketones 1+ H (Negative) mg/dL Ur Blood (Man) 3+ H (Negative) Urine Nitrate Negative (Negative) Urine Bilirubin Negative (Negative) Urine Urobilinogen 1.0 (<2.0) mg/dL Leukocyte Esterase Rfl Negative (Negative) BRIAN/UL Urine RBC >100 H (0-2) /hpf Urine WBC 6-10 H (0-3) /hpf Ur Squamous Epith Cells Occasional (Few) /hpf Urine Bacteria None seen /hpf Urine Casts 3-5 POC Urine HCG, Qual Negative (Negative) Imaging Data Radiologist's impression: Impressions Abdomen/Pelvis CT 12/15/24 06:47 Impression: Small bilateral nonobstructing stones, as above. No ureteral stone or hydronephrosis on either side. Discharge Plan Discharge Clinical Impression: Acute flank pain, Hematuria Patient Disposition: Home, Self-Care Condition: Stable Instructions: Antibiotic Form, Hematuria (ED), Flank Pain (ED) Additional Instructions: Tylenol and ibuprofen for pain control as needed. Drink plenty of fluids. Urine culture was ordered, we may call you in the next 24-48 hours to start antibiotic if the urine culture was concerning. If you have any worsening symptoms then please call or return to the emergency department. Patient Language: Botswanan Prescriptions: No Action ondansetron 8 mg tablet,disintegrating 8 mg PO Q8H Qty: 8 0RF oxycodone-acetaminophen 5-325 mg tablet 1 tablet PO Q4H PRN (Reason: pain) Qty: 10 0RF meclizine 25 mg tablet 25 mg PO BID PRN (Reason: dizziness) Qty: 20 0RF Follow-up/Referrals: PHYSICIAN NOT ON STAFF,NONSTAFF [Non-Staff] -
--- OUTSIDE RECORDS SUMMARY | 2024-12-15 07:28 | XMS_ITS | Referral Summary ---
Author Organization [facility] Address [address] [facility] [place] [address] Care Team Providers Care Art Museum Aide Name Role Phone Unavailable Primary Care Provider Unavailabl e Source Comments [facility],non-[facility] Affiliates and Associated Physician Practices is amultiple site organization consisting of ambulatory clinics and hospital sitesin [place], [place], [place] and [place]. This disclosure is being madepursuant to the Care Everywhere program and may not contain all information available regarding this patient. Last updated 18.[facility] Allergies Active Allergy Reactions Criticality Noted Date [...] file THALIA CASSIDY Personal/Family [address] [place] [address] THALIA CASSIDY Personal/Family [address] [place] [address] THALIA CASSIDY Personal/Family [address] [place] [address]
--- OUTSIDE RECORDS SUMMARY | 2024-12-15 07:28 | XMS_ITS | Encounter Summary ---
Author Organization [facility] Address [address] [place] [address] Care Team Providers Care Executive Communications Manager Name Role Phone Monica Regalado DO Primary Care Provider [phone] Encounter Details Date Type Department Care Team (Late st Contact Info) Description 06/25/2024 [employer] Message [employer] HEALTH INFO SRVCS [facility] Provider Name Change Social History Tobacco Use [...] Description 01/23/2025 7:20 AM CDT Office Visit [facility] [place] [address] [place] [address] Monica Regalado DO [address] [place] [address] documented as of this encounter Visit Diagnoses Not on filedocumented in this encounter Care Teams Executive Communications Manager Relationship Specialty Start Date End Date Monica Regalado DO [address] [place] [address] PCP - General FAMILY PRACTICE 06/24/24 documented as of this encounter
--- OUTSIDE RECORDS SUMMARY | 2024-12-15 07:28 | XMS_ITS | Encounter Summary ---
Author Organization [facility] Address [address] [place] [address] Care Team Providers Care Supervisor Telephone Answering Service Name Role Phone Monica Regalado DO Primary Care Provider [phone] Encounter Details Date Type Department Care Team (Late Contact Info) Description 06/30/2024 Connectipityt Message Enc [facility] Medical [facility] [place] [id number] [place] [address] [facility], [facility] Provider lab results Social History Tobacco Use [...] Description 01/23/2025 7:20 AM CDT [facility] [place] [address] [place] [address] Monica Regalado DO [address] [place] [address] documented as of this encounter Visit Diagnoses Not on filedocumented in this encounter Care Teams Supervisor Telephone Answering Service Relationship Specialty Start Date End Date Monica Regalado DO [address] [place] [address] PCP - General FAMILY PRACTICE 06/24/24 documented as of this encounter
--- OUTSIDE RECORDS SUMMARY | 2024-12-15 07:28 | XMS_ITS | Clinical Summary ---
Author Organization [facility] Address [address] [place] [address] Care Team Providers Care Time Piece Repairer Name Role Phone Unavailable Primary Care Provider Unavailabl e Source Comments [facility],non-owned Affiliates and Associated Physician Practices is amultiple site organization consisting of ambulatory clinics and hospital sitesin [place], [place], [place] and [place]. This disclosure is being madepursuant to the Care Everywhere program and may not contain all information available regarding this patient. Last updated 18.[employer] [facility] Allergies Active Allergy Reactions Criticality Noted Date [...] topic THALIA CASSIDY Personal/Family [address] [place] [address] THALIA CASSIDY Personal/Family [address] [place] [address] THALAI CASSIDY Personal/Family [address] [place] [address]
--- OUTSIDE RECORDS SUMMARY | 2024-12-15 07:28 | XMS_ITS | Clinical Summary ---
Author Organization [facility] Address [address] [place] [address] Care Team Providers Care Ink Technician Name Role Phone Monica Regalado DO Primary Care Provider [phone] Allergies Active Allergy Reactions Criticality Noted Date [...] Adopted Daughter Alive Biological pare nts in [place] - substance abuse Father Maternal Grandmother Maternal [...] Description 01/23/2025 7:20 AM CDT Office Visit [facility] [place] [address] [place] [address] Monica Regalado, [address] [place] [address] Health Maintenance Due Date Last Done Comments Annual Physical 02/27/1991 Hepatitis C 02/27/2006 DTaP, Tdap and Td Vaccines ( 1 - Tdap) 02/27/2007 Hepatitis B Vaccines (1 of 3 - 19+ 3-dose series) 02/27/2007 COVID-19 Vaccine (3 - 2023-2 5 season) 2024 02/12/2021, 01/22/2021 Influenza Adult (#1) 2024 PHQ-2 (Physician [place]) 10/22/2024 06/27/2024 Cervical Cancer Screening Pa p [...] Most Recently Relevant to Health Maintenance Insurance [employer] [place] [id number] [facility] [place] [facility] [place] Care Teams Ink Technician Relationship Specialty Start Date End Date Monica Regalado DO [address] [place] [address] PCP - General FAMILY PRACTICE 06/24/24
--- OUTSIDE RECORDS SUMMARY | 2024-12-15 07:28 | XMS_ITS | Patient Health Summary ---
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 This disclosure is being madepursuant to the Care Everywhere program and may not contain all information available regarding this patient. Last updated 18.[facility] Allergies * Clindamycin(Itching) Medications * Be aware [...] Culture not indicated 02/05/2023 10:50 AM CDT [facility] RBC UA 3-5 0 - 5 # /hpf 02/05/2023 10:50 AM CDT [facility] WBC UA 0-5 0 - 5 # /hpf 02/05/2023 10:50 AM CDT [facility] Bacteria UA Trace(A) None Seen 02/05/2023 10:50 AM CDT [facility] Squamous Epithelial Cells 0-2 0 - 5 /hpf 02/05/2023 10:50 AM CDT [facility] Mucus UA 1+ /LPF 02/05/2023 10:50 AM CDT [facility] Urine URINE SPECIMEN OBTAINED BY CLEAN CATCH PROCEDURE / Unknown Collection / Unknown 02/05/2023 9:56 AM CDT 02/05/2023 10:30 AM CDT Narrative [facility] - 02/05/2023 10:50 AM CDT Natalya Godfrey DO LAB - URINALYSIS ORDERABLES [facility] [address] [place] [address] * (ABNORMAL) URINALYSIS REFLEX MICROSCOPIC REFLEX CULTURE (02/05/2023 9:56 AM CDT) Color UA Yellow Straw, Yellow 02/05/2023 10:46 AM CDT [facility] Clarity UA Clear Clear 02/05/2023 10:46 AM CDT [facility] Glucose UA Negative Negative 02/05/2023 10:46 AM CDT [facility] Bilirubin UA Negative Negative 02/05/2023 10:46 AM CDT [facility] Ketone UA Negative Negative 02/05/2023 10:46 AM CDT [facility] Specific [place] UA 1.013 1.005 - 1.030 02/05/2023 10:46 AM CDT [facility] Blood UA 2+(A) Negative 02/05/2023 10:46 AM CDT [facility] pH UA 5.0 5.0 - 8.0 pH 02/05/2023 10:46 AM CDT [facility] Protein UA Negative Negative 02/05/2023 10:46 AM CDT [facility] Urobilinogen UA Negative Negative mg/dL 02/05/2023 10:46 AM CDT [facility] Nitrite UA Negative Negative 02/05/2023 10:46 AM CDT [facility] Leukocyte UA Negative Negative 02/05/2023 10:46 AM CDT [facility] Urine Microscopy Urine microscopy to follow 02/05/2023 10:46 AM CDT [facility] Reflex Status Culture not indicated 02/05/2023 10:46 AM CDT [facility] Urine URINE SPECIMEN OBTAINED BY CLEAN CATCH PROCEDURE / Unknown Collection / Unknown 02/05/2023 9:56 AM CDT 02/05/2023 10:30 AM CDT Narrative [facility] - 02/05/2023 10:46 AM CDT Natalya Godfrey DO LAB - URINALYSIS ORDERABLES [facility] [address] [place] [address] * HCG URINE QUALITATIVE (02/05/2023 9:56 AM CDT) Pathologist [facility] hCG Qualitative Urine Negative Negative 02/05/2023 10:44 AM CDT [facility] Urine URINE / Unknown Collection / Unknown 02/05/2023 9:56 AM CDT 02/05/2023 10:30 AM CDT Natalya Godfrey DO LAB - URINALYSIS ORDERABLES Performing Organization Address City/State/[facility] Co de Phone Number [facility] [address] [place], [place] [id number] * (ABNORMAL) CBC W AUTO DIFFERENTIAL (02/05/2023 9:56 AM CDT) WBC 6.6 4.4 - 10.7 x10E9/L 02/05/2023 10:41 AM CDT [facility] WBC Corrected 02/05/2023 10:41 AM CDT [facility] RBC 4.58 3.80 - 5.20 x10E12/L 02/05/2023 10:41 AM CDT [facility] Hemoglobin 13.2 12.0 - 15.6 gm/dL 02/05/2023 10:41 AM CDT [facility] Hematocrit 40.1 35.9 - 45.5 % 02/05/2023 10:41 AM CDT [facility] MCV 87.6 80.7 - 98.3 fl 02/05/2023 10:41 AM CDT [facility] MCH 28.8 26.7 - 34.0 pg 02/05/2023 10:41 AM CDT [facility] MCHC 32.9 30.8 - 35.9 gm/dL 02/05/2023 10:41 AM CDT [facility] Platelet Count 249 153 - 416 x10E9/L 02/05/2023 10:41 AM CDT [facility] RDW-CV 12.1 12.1 - 14.9 % 02/05/2023 10:41 AM CDT [facility] MPV 9.3(L) 9.4 - 12.9 fl 02/05/2023 10:41 AM CDT [facility] Neutrophils % 56.4 44.0 - 73.0 % 02/05/2023 10:41 AM CDT [facility] Lymphocytes % 28.1 20.0 - 43.0 % 02/05/2023 10:41 AM CDT [facility] Monocytes % 10.1 5.0 - 13.0 % 02/05/2023 10:41 AM CDT [facility] Eosinophils % 4.7 0.0 - 6.0 % 02/05/2023 10:41 AM CDT [facility] Basophils % 0.5 0.0 - 2.0 % 02/05/2023 10:41 AM CDT [facility] Immature Granulocytes 0.2 0 - 1 % 02/05/2023 10:41 AM CDT [facility] Neutrophil Absolute 3.70 2.01 - 7.14 x10E9/L 02/05/2023 10:41 AM CDT [facility] Lymphocytes Absolute 1.84 1.07 - 3.94 x10E9/L 02/05/2023 10:41 AM CDT [facility] Monocytes Absolute 0.66 0.26 - 1.07 x10E9/L 02/05/2023 10:41 AM CDT [facility] Eosinophils Absolute 0.31 0 - 0.47 x10E9/L 02/05/2023 10:41 AM CDT [facility] Basophils Absolute 0.03 0 - 0.08 x10E9/L 02/05/2023 10:41 AM CDT [facility] Immature Granulocytes Absolute 0.01 0.00 - 0.06 x10E9/L 02/05/2023 10:41 AM CDT [facility] nRBC Auto 0 /100 WBC 02/05/2023 10:41 AM CDT [facility] Blood BLOOD SPECIMEN / Unknown Venipuncture / Unknown 02/05/2023 9:56 AM CDT 02/05/2023 10:29 AM CDT Natalya Godfrey DO LAB - HEMATOLOGY ORDERABLES [facility] [address] [place] [address] * (ABNORMAL) COMPREHENSIVE METABOLIC PANEL (02/05/2023 9:56 AM CDT) [facility] Glucose 108(H) 70 - 105 mg/dL 02/05/2023 10:56 AM CDT [facility] Sodium 138 136 - 145 mmol/L 02/05/2023 10:56 AM CDT [facility] Potassium 4.0 3.5 - 5.1 mmol/L 02/05/2023 10:56 AM CDT [facility] Chloride 106 98 - 107 mmol/L 02/05/2023 10:56 AM CDT [facility] CO2 24 23 - 31 mmol/L 02/05/2023 10:56 AM CDT [facility] Calcium 9.0 8.4 - 10.4 mg/dL 02/05/2023 10:56 AM CDT [facility] Anion Gap 8 8 - 18 mmol/L 02/05/2023 10:56 AM CDT [facility] BUN 10 7 - 18.7 mg/dL 02/05/2023 10:56 AM CDT [facility] Creatinine 0.77 0.57 - 1.11 mg/dL 02/05/2023 10:56 AM CDT [facility] Alkaline Phosphatase 73 40 - 150 U/L 02/05/2023 10:56 AM CDT [facility] ALT 22 0 - 61 U/L 02/05/2023 10:56 AM CDT [facility] AST 15 5 - 34 U/L 02/05/2023 10:56 AM CDT [facility] Protein Total 6.6 6.4 - 8.3 gm/dL 02/05/2023 10:56 AM CDT [facility] Albumin 3.7 3.5 - 5.2 gm/dL 02/05/2023 10:56 AM CDT [facility] Bilirubin Total 0.4 0.2 - 1.2 mg/dL 02/05/2023 10:56 AM [facility] eGFR by CKD-EPI >90 >=90 mL/min/1.7 3 m2 02/05/2023 10:56 AM T [facility] Blood BLOOD SPECIMEN / Unknown Venipuncture / Unknown 02/05/2023 9:56 AM CDT 02/05/2023 10:30 AM CDT Natalya Godfrey DO LAB - CHEMISTRY O RDERABLES [facility] [address] [place] [address] * CT RENAL STONE (02/05/2023 9:32 AM CDT) Anatomical Region Laterality Modality Abdomen Computed Tomogra phy 02/05/2023 9:43 AM CDT Narrative 02/05/2023 9:45 AM CDT PROCEDURE: CT RENAL STONE, DATE/TIME OF EXAM: 02/05/2023 9:33 AM, LOCATION [facility] INDICATION: R10.9: Unspecified abdominal [...] STONE, DATE/TIME OF EXAM: 02/05/2023 9:33 AM,LOCATION [facility] INDICATION: R10.9: Unspecified abdominal [...]
--- OUTSIDE RECORDS SUMMARY | 2024-12-15 07:29 | XMS_ITS | Encounter Summary ---
Author Organization [facility] Address [address] [place] [address] Care Team Providers Care Rehab Office Coordinator Name Role Phone Monica Regalado DO Primary Care Provider [phone] Encounter Details Date Type Department Care Team (Latest Contact Info) Description 08/01/2024 Living Independently Grouphart Message Enc [facility] [address] [place] [address] Monica Regalado DO [address] [place] [address] Shoulder pain, blurry vision, and chills Social [...] Description 01/23/2025 7:20 AM CDT [facility] [address] [place] [address] Monica Regalado DO [address] [place] [address] documented as of this encounter Visit Diagnoses Not on filedocumented in this encounter Care Teams Rehab Office Coordinator Relationship Specialty Start Date End Date Monica Regalado DO [address] [place] [address] PCP - General FAMILY PRACTICE 06/24/24 documented as of this encounter
[2024-12-15 07:48] VITALS: BP 128/80; PULSE 78; RESP 16; TEMP 36.6; O2SAT 100
== END 2024-12-15 07:50 | disposition home or self-care (01) ==
PROVIDERS: Student in an Organized Health Care Education/Training Program; Emergency Provider Emergency Medicine
DX: R10.9 Unspecified abdominal pain (principal); R31.9 Hematuria, unspecified; Z87.442 Personal history of urinary calculi; Z87.891 Personal history of nicotine dependence; N20.0 Calculus of kidney; Z90.49 Acquired absence of other specified parts of digestive tract
CPT/HCPCS: 36415; 74176; 80053; 81001; 81025; 85025; 87086; 99284